=== PATIENT | female | born 1960 | race Hispanic/Latino ===

== ENCOUNTER 2020-07-14 06:57 | Inpatient (IN) | payer OTHER ==
[2020-07-14 07:49] LABS: #Eosinphils 0.2 thou/uL (0.0-0.7); #Monocytes 0.4 thou/uL (0.11-0.59); #Neutrophils 4.9 thou/uL (1.40-6.50); %Basophils 0.6 % (0.0-1.0); %Eosinophils 3.5 % (0.0-10.0); %Lymphocytes 15.4 % (21.0-51.0); %Monocytes 6.4 % (0.0-10.0); Hemoglobin 12.7 g/dL (12.0-16.0); Mean Corpuscular HGB CONC 34.1 g/dL (32.0-36.0); Mean Corpuscular Hemoglobin 30.3 pg (27.0-31.0); Mean Corpuscular Volume 88.8 fL (78.0-98.0); Platelet Count 421 thou/uL (130-400); RBC Distribution Width 11.7 % (11.5-14.5); White Blood Cell (WBC) Count 6.7 thou/uL (4.8-10.8)
--- NOTE | 2020-07-14 08:11 | RAD ---
EXAM: Single view of the chest HISTORY: Fatigue and shortness of breath. Covid exposure. COMPARISON: None FINDINGS: Single view of the chest shows a normal sized cardiomediastinal silhouette. There is scatte red multifocal peripheral infiltrates in the lungs concerning for Covid pneumonia. No acute osseous abnormality. IMPRESSION: Scattered multifocal infiltrates concerning for Covid pneumonia
[2020-07-14 08:13] LABS: ALT (SGPT) 20 U/L (8-55); AST (SGOT) 42 U/L (5-34); Alkaline Phosphatase 57 U/L (40-110); Anion Gap 14 mmol/L (10-20); BUN (Urea Nitrogen) 15 mg/dL (9.8-20.1); Bilirubin, Total 0.9 mg/dL (0.2-1.2); Calc. Creatinine Clearance 0 mL/min (70-130); Calcium 8.3 mg/dL (7.8-10.44); Carbon Dioxide 21 mmol/L (22-29); Chloride 102 mmol/L (98-107); Globulin 4.4 g/dL (2.4-3.5); Glucose 172 mg/dL (70-105); Potassium 3.6 mmol/L (3.5-5.1); Protein, Total 7.4 g/dL (6.0-8.3); Sodium 133 mmol/L (136-145)
[2020-07-14] MEDS ORDERED: Dexamethasone 10 MG/ML VIAL ONE (08:34)
[2020-07-14 09:11] LABS: SARS-CoV-2 NAA Rapid Test DETECTED (NotDetected)
[2020-07-14 09:44] LABS: Bacteria/HPF 3+ HPF (None Seen); Bilirubin Negative (Negative); Blood, Urine Negative (Negative); Clarity Turbid (Clear); Glucose, Urine (Dipstick) 50 mg/dL (Negative); Ketone, Urine 60 mg/dL (Negative); Leukocyte 250 Leu/uL (Negative); Nitrite 1+ (Negative); Protein, Urine (Dipstick) 70 mg/dL (Neg-Trace); RBC/HPF 0-3 HPF (0-3); Specific Gravity, Urine 1.026 (1.002-1.036); WBC/HPF 21-50 HPF (0-3)
[2020-07-14] MEDS ORDERED: Acetaminophen 650 MG Suppository PR PRN (10:45)
[2020-07-14] MEDS ORDERED: Acetaminophen 325 MG TAB PO PRN (10:45)
--- NOTE | 2020-07-14 10:53 | PDOC.HHP ---
Hospitalist HPI - History of Present Illness SOB History of Present Illness: Ms. Oneill is a 51-year-old female with past medical history of type 2 diabetes mellitus, hyperlipidemia who presents emergency room for shortness of breath. Patient reports that her symptoms began approximately 5 days ago with myalgias, subjective fevers and a dry cough. Patient reports that last night she developed worsening shortness of breath and decided to come to the emergency room this morning. She denies nausea vomiting diarrhea. Denies any chest pain or palpitations. In emergency room initial vital signs 114/44, 78, 18, 90.3, 85% on room air. Improved to 94% on 3 L nasal cannula. EKG showed normal sinus rhythm with no ST changes. Initial troponin less than 0.010, WBC 6.7. H/H 12.7/37.3. Chest x- ray showed multifocal bilateral infiltrates consistent with COVID-19 pneumonia. Patient received 6 mg of Decadron in emergency room and was admitted to hospitalist service. Hospitalist ROS - Review of Systems Constitutional: reports: fever, chills, weakness, malaise Eyes: denies: pain, vision change, conjunctivae inflammation, eyelid inflammation, redness, other ENT: reports: throat pain. denies: ear pain, ear discharge, nose pain, nose discharge, nose congestion, mouth pain, mouth swelling, throat swelling, other Respiratory: reports: cough, dry, shortness of breath, SOB with excertion. denies: hemoptysis, pleuritic pain, sputum, wheezing, other Cardiovascular: denies: chest pain, palpitations, orthopnea, paroxysmal noc. dyspnea, edema, light headedness, other Gastrointestinal: denies: nausea, vomiting, abdominal pain, diarrhea, constipation, melena, hematochezia, other Genitourinary: denies: dysuria, frequency, incontinence, hematuria, retention, other Musculoskeletal: denies: neck pain, shoulder pain, arm pain, back pain, hand pain, leg pain, foot pain, other Skin: denies: rash, lesions, madalyn, bruising, other Neurological: denies: weakness, numbness, incoordination, change in speech, confusion, seizures, other - Medication Medications: Home medications include Metformin Statinpatient unsure of name No known drug allergies Hospitalist History - Past Medical History Other Medical History: Past medical history includes Hyperlipidemia Type 2 diabetes mellitus - Past Surgical History Other Surgical History: No past surgical history - Family History Other Family History: No pertinent family history - Social History Smoking Status: Never smoker Alcohol: reports: Rare Drugs: reports: none Living Situation: With Family Activity level: independent ambulation - Exam General Appearance: NAD, awake alert General - other findings: Comfortable on 3 L nasal cannula no respiratory distress Eye: PERRL, anicteric sclera ENT: normocephalic atraumatic, no oropharyngeal lesions, moist mucosa Neck: supple, symmetric, no JVD, no thyromegaly, no lymphadenopathy, no carotid bruit Heart: RRR, no murmur, no gallops, no rubs, normal peripheral pulses Respiratory: CTAB, no wheezes, no rales, no ronchi, normal chest expansion, no tachypnea, normal percussion Gastrointestinal: soft, non-tender, non-distended, normal bowel sounds, no palpable masses, no hepatomegaly, no splenomegaly, no bruit Extremities: no cyanosis, no clubbing, no edema Skin: normal turgor, no lesions, no rashes Neurological: cranial nerve grossly intact, normal sensation to touch, no weakness, no focal deficits, no new deficit Musculoskeletal: normal tone, normal strength, no muscle wasting Psychiatric: normal affect, normal behavior, A&O x 3 Hospitalist Results - Labs Result Diagrams: 07/14/20 07:31 07/14/20 07:31 Lab results: WBC 6.7 thou/uL (4.8-10.8) 07/14/20 07:31 Hgb 12.7 g/dL (12.0-16.0) 07/14/20 07:31 Hct 37.3 % (36.0-47.0) 07/14/20 07:31 MCV 88.8 fL (78.0-98.0) 07/14/20 07:31 Plt Count 421 thou/uL (130-400) H 07/14/20 07:31 Neutrophils % 74.0 % (42.0-75.0) 07/14/20 07:31 Sodium 133 mmol/L (136-145) L 07/14/20 07:31 Potassium 3.6 mmol/L (3.5-5.1) 07/14/20 07:31 Chloride 102 mmol/L (98-107) 07/14/20 07:31 Carbon Dioxide 21 mmol/L (22-29) L 07/14/20 07:31 BUN 15 mg/dL (9.8-20.1) 07/14/20 07:31 Creatinine 0.83 mg/dL (0.6-1.1) 07/14/20 07:31 Glucose 172 mg/dL (70-105) H 07/14/20 07:31 Calcium 8.3 mg/dL (7.8-10.44) 07/14/20 07:31 Total Bilirubin 0.9 mg/dL (0.2-1.2) 07/14/20 07:31 AST 42 U/L (5-34) H 07/14/20 07:31 ALT 20 U/L (8-55) 07/14/20 07:31 Alkaline Phosphatase 57 U/L (40-110) 07/14/20 07:31 Troponin I Less than 0.010 ng/mL (< 0.028) 07/14/20 07:31 B-Natriuretic Peptide 30.3 pg/mL (0-100) 07/14/20 07:31 Serum Total Protein 7.4 g/dL (6.0-8.3) 07/14/20 07:31 Albumin 3.0 g/dL (3.5-5.0) L 07/14/20 07:31 Urine Ketones 60 mg/dL (Negative) A 07/14/20 08:50 Urine Blood Negative (Negative) 07/14/20 08:50 Urine Nitrite 1+ (Negative) A 07/14/20 08:50 Ur Leukocyte Esterase 250 Stew/uL (Negative) A 07/14/20 08:50 Urine RBC 0-3 HPF (0-3) 07/14/20 08:50 Urine WBC 21-50 HPF (0-3) A 07/14/20 08:50 Ur Squamous Epith Cells 4-6 HPF (0-3) A 07/14/20 08:50 Urine Bacteria 3+ HPF (None Seen) A 07/14/20 08:50 Hospitalist H&P A/P - Plan Plan: COVID-19 pneumonia 51-year-old female with history of hyper lipidemia, type 2 diabetes mellitus on Metformin presents with 5 days of fevers, myalgias and worsening shortness of breath. Patient now requiring supplemental oxygen on 3 L nasal cannula to maintain O2 saturation. WBC 6.7, chest x-ray shows multifocal infiltrates. Patient received Decadron in the emergency room. We will continue steroids, see if patient is candidate for remdesivir. Plan -Decadron, will see patient is candidate for remdesivir -Supplemental oxygen -Tylenol, Robitussin -Vitamin C, zinc -We will obtain baseline inflammatory markers Acute hypoxic respiratory failure Patient with acute hypoxic respiratory failure secondary to moderate to severe COVID-19 pneumonia. Patient with new oxygen requirement now on 3 L of oxygen nasal cannula to maintain O2 sat. We will continue supplemental oxygen and closely monitor respiratory status. Treatment as above. Plan -Supplemental oxygen -Treatment as above -Closely monitor respiratory status Type 2 diabetes mellitus On Metformin. Will continue and place on ISS/ACHS. Hyperlipidemia We will continue home statin once dosage confirmed DVT prophylaxisLovenox Full code Case discussed with attending physician, Dr. Schmitt.
[2020-07-14] MEDS ORDERED: Albuterol 200 PUFF (6.7GM INHALER) INH PRN (11:07)
[2020-07-14 11:13] VITALS: BMI 24.7
[2020-07-14] MEDS ORDERED: REMDESIVIR (EUA) 200 MG in Sodium Chloride 0.9% 250 ML 210 ML IV SCH (11:30)
[2020-07-14] MEDS ORDERED: Dextrose 50% Abboject 50 ML SYRINGE SLOW IVP PRN (16:42)
[2020-07-14] MEDS ORDERED: Dextrose 5% in Water 1,000 ML IV PRN (16:42)
[2020-07-14] MEDS: metFORMIN 500 MG TAB PO SCH (17:30)
[2020-07-14] MEDS: HumaLOG 300 UNITS/3 ML VIAL SC PRN ×2 (17:31→19:57)
[2020-07-15] MEDS: HumaLOG 300 UNITS/3 ML VIAL SC PRN ×4 (06:13→20:18)
[2020-07-15 07:51] LABS: Anion Gap 17 mmol/L (10-20); BUN (Urea Nitrogen) 26 mg/dL (9.8-20.1); Calc. Creatinine Clearance 76 mL/min (70-130); Calcium 8.9 mg/dL (7.8-10.44); Carbon Dioxide 19 mmol/L (22-29); Chloride 103 mmol/L (98-107); Glucose 299 mg/dL (70-105); Hemoglobin 12.8 g/dL (12.0-16.0); Mean Corpuscular HGB CONC 33.2 g/dL (32.0-36.0); Mean Corpuscular Hemoglobin 29.1 pg (27.0-31.0); Mean Corpuscular Volume 87.6 fL (78.0-98.0); Potassium 3.7 mmol/L (3.5-5.1); RBC Distribution Width 11.6 % (11.5-14.5); Sodium 135 mmol/L (136-145)
[2020-07-15] MEDS: Insulin Regular 300 UNITS/3 ML VIAL SC SCH (08:30)
[2020-07-15] MEDS: Dexamethasone 4 MG TAB PO SCH (08:31)
[2020-07-15] MEDS: Zinc Sulfate 220 MG CAP PO SCH (08:31)
[2020-07-15] MEDS: metFORMIN 500 MG TAB PO SCH ×2 (08:31→16:24)
[2020-07-15] MEDS: Ascorbic Acid 500 mg Chewable Tablet PO SCH (08:31)
[2020-07-15] MEDS: Enoxaparin Sodium 40 MG/0.4 ML SYRINGE SC SCH (08:32)
[2020-07-15 11:14] LABS: Band 2 % (5-11); Lymphocytes 8 % (21-51); MDiff Complete? YES; Mean Platelet Volume 7.4 fL (7.4-10.4); Monocytes 6 % (0-10); Neutrophil 82 % (42-75); Platelet Count 493 thou/uL (130-400); Platelet Morphology Comment Appears Increased; Reactive Lymphocytes 2 % (0-10); White Blood Cell (WBC) Count 8.4 thou/uL (4.8-10.8)
[2020-07-15] MEDS: REMDESIVIR (EUA) 100 MG in Sodium Chloride 0.9% 250 ML 230 ML IV SCH (13:35)
--- NOTE | 2020-07-15 14:54 | PDOC.HOSPP ---
- Subjective Encounter Date: 07/15/20 Encounter Time: 09:00 Subjective: No overnight events. Patient continues on 3L NC. No other complaints at this time. Chart and medications reviewed. - Objective Vital Signs & Weight: Vital Signs (12 hours) Temp Pulse Resp BP Pulse Ox 07/15/20 12:43 98.0 F 68 20 124/71 99 07/15/20 08:00 93 L 07/15/20 07:47 97.7 F 73 20 113/67 93 L 07/15/20 05:12 97.6 F 79 18 112/62 90 L Weight Weight 149 lb I&O: 07/14/20 07/15/20 07/16/20 06:59 06:59 06:59 Intake Total 320 Balance 320 Result Diagrams: 07/15/20 06:33 07/15/20 06:33 Additional Labs: Accuchecks 07/15/20 07/15/20 07/14/20 11:57 04:30 19:29 POC Glucose 245 H 272 H 344 H 07/14/20 16:39 POC Glucose 344 H Hospitalist ROS - Review of Systems Constitutional: denies: fever, chills, sweats, weakness, malaise, other Eyes: denies: vision change ENT: reports: nose congestion, throat pain Respiratory: reports: cough, shortness of breath. denies: dry, hemoptysis, SOB with excertion, pleuritic pain, sputum, wheezing, other Cardiovascular: denies: chest pain, palpitations, orthopnea, paroxysmal noc. dyspnea, edema, light headedness, other Gastrointestinal: denies: nausea, vomiting, abdominal pain, diarrhea, constipation, melena, hematochezia, other Genitourinary: denies: dysuria, frequency, incontinence, hematuria, retention, other Musculoskeletal: denies: neck pain, shoulder pain, arm pain, back pain, hand pain, leg pain, foot pain, other Skin: denies: rash, lesions, madalyn, bruising, other Neurological: denies: weakness, numbness, incoordination, change in speech, confusion, seizures, other - Medication Medications: Active Medications Generic Name Dose Route Start Last Admin Trade Name Freq PRN Reason Stop Dose Admin Ascorbic Acid 1,000 mg 07/15/20 09:00 07/15/20 08:31 Ascorbic Acid 500 Mg Chewable Tablet PO 1,000 mg DAILY ROSS Administration Dexamethasone 6 mg 07/15/20 08:00 07/15/20 08:31 Dexamethasone 4 Mg Tab PO 6 mg QAM-WM ROSS Administration Enoxaparin Sodium 40 mg 07/15/20 09:00 07/15/20 08:32 Enoxaparin Sodium 40 Mg/0.4 Ml Syringe SC 40 mg 0900 ROSS Administration Remdesivir 100 mg/ Sodium 250 mls @ 250 mls/hr 07/15/20 12:00 07/15/20 13:35 Chloride IV 07/18/20 12:59 250 mls 1200 ROSS Administration Insulin Human Lispro 0 units 07/14/20 16:42 07/15/20 13:35 Humalog 300 Units/3 Ml Vial SC 3 unit .MILD SLIDING SCALE PRN Administration Mild Correctional Scale Insulin Human Lispro 0 units 07/14/20 16:42 07/14/20 19:57 Humalog 300 Units/3 Ml Vial SC 5 unit .BEDTIME SLIDING SC PRN Administration Bedtime Correctional Scale Insulin Human Regular 15 units 07/15/20 07:30 07/15/20 08:30 Insulin Regular 300 Units/3 Ml Vial SC 15 unit 0730 ROSS Administration Metformin HCl 1,000 mg 07/14/20 17:00 07/15/20 08:31 Metformin 500 Mg Tab PO 1,000 mg BID-WM ROSS Administration Zinc Sulfate 220 mg 07/15/20 09:00 07/15/20 08:31 Zinc Sulfate 220 Mg Cap PO 220 mg DAILY ROSS Administration - Exam General Appearance: NAD, awake alert General - other findings: Comfortable on 3L NC Eye: negative: PERRL, anicteric sclera, scleral icterus ENT: normocephalic atraumatic, no oropharyngeal lesions, moist mucosa Neck: supple, symmetric, no JVD, no thyromegaly, no lymphadenopathy, no carotid bruit Heart: RRR, no murmur, no gallops, no rubs, normal peripheral pulses Respiratory - other findings: Rales throughout Gastrointestinal: soft, non-tender, non-distended, normal bowel sounds, no palpable masses, no hepatomegaly, no splenomegaly, no bruit Extremities: no cyanosis, no clubbing, no edema Skin: normal turgor, no lesions, no rashes Neurological: cranial nerve grossly intact, normal sensation to touch, no weakness, no focal deficits, no new deficit Musculoskeletal: normal tone, normal strength, no muscle wasting Psychiatric: normal affect, normal behavior, A&O x 3 Hosp A/P - Plan COVID-19 pneumonia 51-year-old female with history of hyper lipidemia, type 2 diabetes mellitus on Metformin presents with 5 days of fevers, myalgias and worsening shortness of breath. Patient now requiring supplemental oxygen on 3 L nasal cannula to maintain O2 saturation. WBC 6.7, chest x-ray shows multifocal infiltrates. Patient received Decadron in the emergency room. We will continue steroids, remdesivir. Continues on 3L NC. Plan -Decadron, remdesivir -Supplemental oxygen -Tylenol, Robitussin -Vitamin C, zinc -We will obtain baseline inflammatory markers Acute hypoxic respiratory failure Patient with acute hypoxic respiratory failure secondary to moderate to severe COVID-19 pneumonia. Patient with new oxygen requirement now on 3 L of oxygen nasal cannula to maintain O2 sat. We will continue supplemental oxygen and closely monitor respiratory status. Treatment as above. Plan -Supplemental oxygen -Treatment as above -Closely monitor respiratory status Type 2 diabetes mellitus On Metformin. Will continue and place on ISS/ACHS. Hyperlipidemia We will continue home statin once dosage confirmed Abnormal UA UA positive for WBCs, leukocytes, but lots of squamous cells. Likely contaminated sample. Patient denies urinary symptoms at this time. Will repeat UA if she develops symptoms. DVT prophylaxisLovenox Full code Case discussed with attending physician, Dr. Jaeger.
[2020-07-16] MEDS: HumaLOG 300 UNITS/3 ML VIAL SC PRN ×4 (05:15→19:58)
[2020-07-16 06:49] LABS: #Lymphocytes 1.8 thou/uL (1.20-3.40); #Monocytes 0.5 thou/uL (0.11-0.59); #Neutrophils 9.5 thou/uL (1.40-6.50); %Basophils 0.3 % (0.0-1.0); %Eosinophils 0.2 % (0.0-10.0); %Lymphocytes 14.8 % (21.0-51.0); %Monocytes 4.5 % (0.0-10.0); %Neutrophils 80.1 % (42.0-75.0); Hemoglobin 12.6 g/dL (12.0-16.0); Mean Corpuscular HGB CONC 33.6 g/dL (32.0-36.0); Mean Corpuscular Hemoglobin 29.5 pg (27.0-31.0); Mean Corpuscular Volume 87.7 fL (78.0-98.0); Mean Platelet Volume 7.2 fL (7.4-10.4); Platelet Count 558 thou/uL (130-400); RBC Distribution Width 11.8 % (11.5-14.5); Red Blood Cell (RBC) Count 4.26 mill/uL (4.20-5.40); White Blood Cell (WBC) Count 11.9 thou/uL (4.8-10.8)
[2020-07-16 07:07] LABS: Anion Gap 16 mmol/L (10-20); BUN (Urea Nitrogen) 30 mg/dL (9.8-20.1); Calc. Creatinine Clearance 72 mL/min (70-130); Calcium 8.7 mg/dL (7.8-10.44); Carbon Dioxide 18 mmol/L (22-29); Chloride 106 mmol/L (98-107); Glucose 267 mg/dL (70-105); Potassium 3.9 mmol/L (3.5-5.1); Sodium 136 mmol/L (136-145)
[2020-07-16] MEDS: Insulin Regular 300 UNITS/3 ML VIAL SC SCH (07:51)
[2020-07-16] MEDS: Dexamethasone 4 MG TAB PO SCH (07:51)
[2020-07-16] MEDS: metFORMIN 500 MG TAB PO SCH ×2 (07:52→17:27)
[2020-07-16] MEDS: Ascorbic Acid 500 mg Chewable Tablet PO SCH (07:52)
[2020-07-16] MEDS: Zinc Sulfate 220 MG CAP PO SCH (07:52)
[2020-07-16] MEDS: Enoxaparin Sodium 40 MG/0.4 ML SYRINGE SC SCH (07:52)
[2020-07-16] MEDS: REMDESIVIR (EUA) 100 MG in Sodium Chloride 0.9% 250 ML 230 ML IV SCH (14:02)
--- NOTE | 2020-07-16 15:55 | PDOC.HOSPP ---
- Subjective Encounter Date: 07/16/20 Encounter Time: 15:45 Subjective: f/u for COVID PNA/hypoxic resp failure on current Remdesivir/Vit C/Zinc/Lovenox/O2 @ 2L/min NC. - Objective Vital Signs & Weight: Vital Signs (12 hours) Temp Pulse Resp BP Pulse Ox 07/16/20 08:52 98.2 F 67 20 137/76 98 07/16/20 08:44 98 07/16/20 08:20 98.2 F 67 20 137/76 98 07/16/20 08:00 98 Weight Weight 149 lb I&O: 07/15/20 07/16/20 07/17/20 06:59 06:59 06:59 Intake Total 320 250 Balance 320 250 Result Diagrams: 07/16/20 06:26 07/16/20 06:26 Additional Labs: Accuchecks 07/16/20 07/16/20 07/15/20 11:25 05:13 19:19 POC Glucose 266 H 248 H 329 H 07/15/20 16:36 POC Glucose 321 H Radiology Reviewed by me: Yes (PCXR - scattered multifocal infiltrates) Hospitalist ROS - Medication Medications: Active Medications Generic Name Dose Route Start Last Admin Trade Name Freq PRN Reason Stop Dose Admin Ascorbic Acid 1,000 mg 07/15/20 09:00 07/16/20 07:52 Ascorbic Acid 500 Mg Chewable Tablet PO 1,000 mg DAILY ROSS Administration Dexamethasone 6 mg 07/15/20 08:00 07/16/20 07:51 Dexamethasone 4 Mg Tab PO 6 mg QAM-WM ROSS Administration Enoxaparin Sodium 40 mg 07/15/20 09:00 07/16/20 07:52 Enoxaparin Sodium 40 Mg/0.4 Ml Syringe SC 40 mg 0900 ROSS Administration Remdesivir 100 mg/ Sodium 250 mls @ 250 mls/hr 07/15/20 12:00 07/16/20 14:02 Chloride IV 07/18/20 12:59 250 mls 1200 ROSS Administration Insulin Human Lispro 0 units 07/14/20 16:42 07/16/20 12:46 Humalog 300 Units/3 Ml Vial SC 4 unit .MILD SLIDING SCALE PRN Administration Mild Correctional Scale Insulin Human Lispro 0 units 07/14/20 16:42 07/15/20 20:18 Humalog 300 Units/3 Ml Vial SC 4 unit .BEDTIME SLIDING SC PRN Administration Bedtime Correctional Scale Insulin Human Regular 15 units 07/15/20 07:30 07/16/20 07:51 Insulin Regular 300 Units/3 Ml Vial SC 15 unit 0730 ROSS Administration Metformin HCl 1,000 mg 07/14/20 17:00 07/16/20 07:52 Metformin 500 Mg Tab PO 1,000 mg BID-WM ROSS Administration Zinc Sulfate 220 mg 07/15/20 09:00 07/16/20 07:52 Zinc Sulfate 220 Mg Cap PO 220 mg DAILY ROSS Administration - Exam General Appearance: NAD, awake alert Eye: PERRL, anicteric sclera ENT: normocephalic atraumatic, no oropharyngeal lesions Neck: supple, symmetric, no JVD, no thyromegaly, no lymphadenopathy Heart: RRR, no gallops, no rubs, normal peripheral pulses Heart - other findings: S1, S2 Respiratory: no tachypnea Respiratory - other findings: diminished in bases, occ rhonchi Gastrointestinal: soft, non-tender, non-distended, normal bowel sounds, no palpable masses Extremities: no cyanosis, no clubbing, no edema Skin: normal turgor, no lesions Neurological: cranial nerve grossly intact, no new deficit Musculoskeletal: normal tone, normal strength, no muscle wasting Psychiatric: normal affect, A&O x 3 Hosp A/P (1) Pneumonia due to COVID-19 virus Code(s): U07.1 - COVID-19; J12.82 - PNEUMONIA DUE TO CORONAVIRUS DISEASE 2019 Status: Acute Plan: Continue Remdesivir/Vit C/Zinc/D3/Lovenox/O2 supplementation (2) Acute respiratory failure with hypoxia Code(s): J96.01 - ACUTE RESPIRATORY FAILURE WITH HYPOXIA Status: Acute Plan: O2 supplementation, assess for home O2 (3) UTI (urinary tract infection) Status: Acute Plan: Suspected with GNR, start Rocephin 2gm IV Daily, await final Ucx results (4) Diabetes mellitus, type II, insulin dependent Code(s): E11.9 - TYPE 2 DIABETES MELLITUS WITHOUT COMPLICATIONS; Z79.4 - CUSTODIAL (CURRENT) USE OF INSULIN Status: Chronic Plan: Labile due to Dexamethasone, start Lantus 10u sc BID, ISS, ADA - Plan social worker, respiratory therapy, incentive spirometry, out of bed/ambulate, DVT proph w/SCDs Stable currently Continue Remdesivir IV per protocol Continue Vit C/Zinc/D3 Continue Lovenox Assess for home O2 Start Rocephin 2gm IV Daily AM lab: Ferritin, CRP q2days
[2020-07-16] MEDS: cefTRIAXone\\ROCEPHIN 2 GM in Sodium Chloride 0.9% 100 ML IVPB SCH (17:27)
[2020-07-16] MEDS: Insulin Glargine 10 UNITS in Pre-Filled Syringe 1 EACH SC SCH (19:58)
[2020-07-17] MEDS: HumaLOG 300 UNITS/3 ML VIAL SC PRN ×4 (05:36→20:35)
[2020-07-17 07:28] LABS: Anion Gap 14 mmol/L (10-20); BUN (Urea Nitrogen) 24 mg/dL (9.8-20.1); Calc. Creatinine Clearance 72 mL/min (70-130); Calcium 8.8 mg/dL (7.8-10.44); Carbon Dioxide 21 mmol/L (22-29); Chloride 106 mmol/L (98-107); Glucose 209 mg/dL (70-105); Sodium 137 mmol/L (136-145)
[2020-07-17 07:37] LABS: #Eosinphils 0.1 thou/uL (0.0-0.7); #Lymphocytes 1.9 thou/uL (1.20-3.40); #Monocytes 0.6 thou/uL (0.11-0.59); #Neutrophils 6.8 thou/uL (1.40-6.50); %Basophils 0.1 % (0.0-1.0); %Eosinophils 0.9 % (0.0-10.0); %Monocytes 6.3 % (0.0-10.0); %Neutrophils 72.7 % (42.0-75.0); Hemoglobin 12.7 g/dL (12.0-16.0); Mean Corpuscular HGB CONC 34.2 g/dL (32.0-36.0); Mean Corpuscular Hemoglobin 30.5 pg (27.0-31.0); Mean Corpuscular Volume 89.3 fL (78.0-98.0); Mean Platelet Volume 8.7 fL (7.4-10.4); Platelet Count 376 thou/uL (130-400); Red Blood Cell (RBC) Count 4.16 mill/uL (4.20-5.40); White Blood Cell (WBC) Count 9.4 thou/uL (4.8-10.8)
[2020-07-17] MEDS: Dexamethasone 4 MG TAB PO SCH (08:12)
[2020-07-17] MEDS: Cholecalciferol 1,000 UNITS (25 MCG) TAB PO SCH (08:12)
[2020-07-17] MEDS: Ascorbic Acid 500 mg Chewable Tablet PO SCH (08:12)
[2020-07-17] MEDS: metFORMIN 500 MG TAB PO SCH ×2 (08:12→16:10)
[2020-07-17] MEDS: Zinc Sulfate 220 MG CAP PO SCH (08:13)
[2020-07-17] MEDS: Enoxaparin Sodium 40 MG/0.4 ML SYRINGE SC SCH (08:13)
--- NOTE | 2020-07-17 11:09 | PDOC.HOSPP ---
- Subjective Encounter Date: 07/17/20 Encounter Time: 11:10 Subjective: f/u for COVID PNA/hypoxic resp failure receiving O2 @ 2L/min NC/Rocephin/Vit C/Zinc/Lovenox/Remdesivir/Dexamethasone. Overall feels better. - Objective Vital Signs & Weight: Vital Signs (12 hours) Temp Pulse Resp BP Pulse Ox 07/17/20 07:52 96 07/17/20 07:36 97.9 F 69 20 125/68 96 07/17/20 03:42 68 18 97 07/16/20 23:35 74 20 96 Weight Weight 149 lb I&O: 07/16/20 07/17/20 07/18/20 06:59 06:59 06:59 Intake Total 250 250 Balance 250 250 Result Diagrams: 07/17/20 06:34 07/17/20 06:34 Additional Labs: Accuchecks 07/17/20 07/16/20 07/16/20 05:35 19:22 16:38 POC Glucose 209 H 370 H 304 H 07/16/20 11:25 POC Glucose 266 H Microbiology 07/14/20 08:50 Urine voided Urine Culture - Final Escherichia coli Laboratory Tests 07/14/20 07/14/20 07/15/20 07:31 07:43 18:03 Ferritin C-Reactive Protein 11.59 H B-Natriuretic Peptide 30.3 Influenza A RNA INAAT Not Detected Influenza B RNA INAAT Not Detected SARS-CoV-2 Rap RNA(RT-PCR) DETECTED A* 07/15/20 07/17/20 07/17/20 18:03 06:34 06:34 Ferritin 590.84 H 392.55 H C-Reactive Protein 4.28 H B-Natriuretic Peptide Influenza A RNA INAAT Influenza B RNA INAAT SARS-CoV-2 Rap RNA(RT-PCR) Hospitalist ROS - Medication Medications: Active Medications Generic Name Dose Route Start Last Admin Trade Name Freq PRN Reason Stop Dose Admin Ascorbic Acid 1,000 mg 07/15/20 09:00 07/17/20 08:12 Ascorbic Acid 500 Mg Chewable Tablet PO 1,000 mg DAILY ROSS Administration Cholecalciferol 1,000 units 07/17/20 09:00 07/17/20 08:12 Cholecalciferol 1,000 Units (25 Mcg) Tab PO 1,000 units DAILY ROSS Administration Dexamethasone 6 mg 07/15/20 08:00 07/17/20 08:12 Dexamethasone 4 Mg Tab PO 6 mg QAM-WM ROSS Administration Enoxaparin Sodium 40 mg 07/15/20 09:00 07/17/20 08:13 Enoxaparin Sodium 40 Mg/0.4 Ml Syringe SC 40 mg 0900 ROSS Administration Remdesivir 100 mg/ Sodium 250 mls @ 250 mls/hr 07/15/20 12:00 07/16/20 14:02 Chloride IV 07/18/20 12:59 250 mls 1200 ROSS Administration Ceftriaxone Sodium 2 gm/ 100 mls @ 200 mls/hr 07/16/20 17:00 07/16/20 17:27 Sodium Chloride IVPB 100 mls 1700 ROSS Administration Insulin Glargine 10 units/ 0.1 mls @ 0 mls/hr 07/16/20 21:00 07/16/20 19:58 Miscellaneous Medication SC 0.1 mls HS ROSS Administration Insulin Human Lispro 0 units 07/14/20 16:42 07/17/20 05:36 Humalog 300 Units/3 Ml Vial SC 3 unit .MILD SLIDING SCALE PRN Administration Mild Correctional Scale Insulin Human Lispro 0 units 07/14/20 16:42 07/16/20 19:58 Humalog 300 Units/3 Ml Vial SC 5 unit .BEDTIME SLIDING SC PRN Administration Bedtime Correctional Scale Metformin HCl 1,000 mg 07/14/20 17:00 07/17/20 08:12 Metformin 500 Mg Tab PO 1,000 mg BID-WM ROSS Administration Zinc Sulfate 220 mg 07/15/20 09:00 07/17/20 08:13 Zinc Sulfate 220 Mg Cap PO 220 mg DAILY ROSS Administration - Exam General Appearance: NAD, awake alert Eye: PERRL, anicteric sclera ENT: normocephalic atraumatic, no oropharyngeal lesions Neck: supple, symmetric, no JVD, no thyromegaly, no lymphadenopathy Heart: RRR, no murmur, no gallops, no rubs, normal peripheral pulses Heart - other findings: S1, S2 Respiratory: no wheezes, no tachypnea Respiratory - other findings: few scattered rhonchi Gastrointestinal: soft, non-tender, non-distended, normal bowel sounds, no palpable masses Extremities: no cyanosis, no clubbing, no edema Skin: normal turgor, no lesions Neurological: cranial nerve grossly intact, no new deficit Musculoskeletal: normal tone, normal strength, no muscle wasting Psychiatric: normal affect, A&O x 3 Hosp A/P (1) Pneumonia due to COVID-19 virus Code(s): U07.1 - COVID-19; J12.82 - PNEUMONIA DUE TO CORONAVIRUS DISEASE 2019 Status: Acute Plan: continue Remdesivir/Lovenox/Dexamethasone/Vit C/D3/Zinc/O2 (2) Acute respiratory failure with hypoxia Code(s): J96.01 - ACUTE RESPIRATORY FAILURE WITH HYPOXIA Status: Acute Plan: continue O2 supplementation, consider home O2 needs (3) UTI (urinary tract infection) Status: Acute Plan: E. coli spp isolated, continue Rocephin (4) Diabetes mellitus, type II, insulin dependent Code(s): E11.9 - TYPE 2 DIABETES MELLITUS WITHOUT COMPLICATIONS; Z79.4 - ENGINE SERVICE REPAIRER (CURRENT) USE OF INSULIN Status: Chronic - Plan plan discussed w/ family, continue antibiotics, social welfare research worker, respiratory therapy, out of bed/ambulate, DVT proph w/SCDs Stable currently Continue Remdesivir IV per protocol Continue Vit C/Zinc/D3 Continue Lovenox Assess for home O2 Continue Rocephin 2gm IV Daily AM lab: Ferritin, CRP q2days Likely home in 48h
[2020-07-17] MEDS: Insulin Glargine 10 UNITS in Pre-Filled Syringe 1 EACH SC SCH ×2 (11:13→20:36)
[2020-07-17] MEDS: REMDESIVIR (EUA) 100 MG in Sodium Chloride 0.9% 250 ML 230 ML IV SCH (14:10)
[2020-07-17] MEDS: cefTRIAXone\\ROCEPHIN 2 GM in Sodium Chloride 0.9% 100 ML IVPB SCH (16:11)
[2020-07-18 06:20] LABS: #Basophils 0.1 thou/uL (0.0-0.2); #Eosinphils 0.3 thou/uL (0.0-0.7); #Lymphocytes 2.8 thou/uL (1.20-3.40); #Monocytes 0.7 thou/uL (0.11-0.59); #Neutrophils 7.4 thou/uL (1.40-6.50); %Basophils 0.5 % (0.0-1.0); %Eosinophils 2.4 % (0.0-10.0); %Lymphocytes 24.5 % (21.0-51.0); %Monocytes 6.6 % (0.0-10.0); Hemoglobin 13.1 g/dL (12.0-16.0); Mean Corpuscular Hemoglobin 30.1 pg (27.0-31.0); Mean Corpuscular Volume 88.6 fL (78.0-98.0); Mean Platelet Volume 6.9 fL (7.4-10.4); Platelet Count 543 thou/uL (130-400); RBC Distribution Width 12.1 % (11.5-14.5); Red Blood Cell (RBC) Count 4.34 mill/uL (4.20-5.40); White Blood Cell (WBC) Count 11.3 thou/uL (4.8-10.8)
[2020-07-18 06:39] LABS: Anion Gap 14 mmol/L (10-20); BUN (Urea Nitrogen) 20 mg/dL (9.8-20.1); Calc. Creatinine Clearance 85 mL/min (70-130); Calcium 8.7 mg/dL (7.8-10.44); Carbon Dioxide 20 mmol/L (22-29); Chloride 106 mmol/L (98-107); Glucose 149 mg/dL (70-105); Potassium 3.9 mmol/L (3.5-5.1); Sodium 136 mmol/L (136-145)
[2020-07-18] MEDS: Dexamethasone 4 MG TAB PO SCH (07:55)
[2020-07-18] MEDS: Ascorbic Acid 500 mg Chewable Tablet PO SCH (07:55)
[2020-07-18] MEDS: metFORMIN 500 MG TAB PO SCH ×2 (07:55→16:44)
[2020-07-18] MEDS: Cholecalciferol 1,000 UNITS (25 MCG) TAB PO SCH (07:56)
[2020-07-18] MEDS: Zinc Sulfate 220 MG CAP PO SCH (07:56)
[2020-07-18] MEDS: Enoxaparin Sodium 40 MG/0.4 ML SYRINGE SC SCH (07:56)
[2020-07-18] MEDS: Insulin Glargine 10 UNITS in Pre-Filled Syringe 1 EACH SC SCH ×2 (09:05→20:34)
--- NOTE | 2020-07-18 11:20 | PDOC.HOSPP ---
- Subjective Encounter Date: 07/18/20 Encounter Time: 11:10 Subjective: f/u for COVID PNA/hypoxic resp failure on O2 @ 0.5L/min NC. Feels better overall. Some SOB when ambulating. - Objective Vital Signs & Weight: Vital Signs (12 hours) Temp Pulse Resp BP Pulse Ox 07/18/20 08:00 95 07/18/20 07:55 76 20 95 07/18/20 07:40 98.3 F 68 22 H 110/70 95 07/18/20 05:42 72 20 93 L 07/18/20 03:43 61 18 97 07/17/20 23:37 61 18 98 Weight Weight 149 lb I&O: 07/17/20 07/18/20 07/19/20 06:59 06:59 06:59 Intake Total 250 480 Balance 250 480 Result Diagrams: 07/18/20 05:47 07/18/20 05:47 Additional Labs: Accuchecks 07/18/20 07/17/20 07/17/20 05:21 19:41 16:19 POC Glucose 143 H 290 H 361 H Microbiology 07/14/20 08:50 Urine voided Urine Culture - Final Escherichia coli Laboratory Tests 07/14/20 07/14/20 07/15/20 07:31 07:43 18:03 Ferritin C-Reactive Protein 11.59 H B-Natriuretic Peptide 30.3 Influenza A RNA INAAT Not Detected Influenza B RNA INAAT Not Detected SARS-CoV-2 Rap RNA(RT-PCR) DETECTED A* 07/15/20 07/17/20 07/17/20 18:03 06:34 06:34 Ferritin 590.84 H 392.55 H C-Reactive Protein 4.28 H B-Natriuretic Peptide Influenza A RNA INAAT Influenza B RNA INAAT SARS-CoV-2 Rap RNA(RT-PCR) Hospitalist ROS - Medication Medications: Active Medications Generic Name Dose Route Start Last Admin Trade Name Freq PRN Reason Stop Dose Admin Ascorbic Acid 1,000 mg 07/15/20 09:00 07/18/20 07:55 Ascorbic Acid 500 Mg Chewable Tablet PO 1,000 mg DAILY ROSS Administration Cholecalciferol 1,000 units 07/17/20 09:00 07/18/20 07:56 Cholecalciferol 1,000 Units (25 Mcg) Tab PO 1,000 units DAILY ROSS Administration Dexamethasone 6 mg 07/15/20 08:00 07/18/20 07:55 Dexamethasone 4 Mg Tab PO 6 mg QAM-WM ROSS Administration Enoxaparin Sodium 40 mg 07/15/20 09:00 07/18/20 07:56 Enoxaparin Sodium 40 Mg/0.4 Ml Syringe SC 40 mg 0900 ROSS Administration Remdesivir 100 mg/ Sodium 250 mls @ 250 mls/hr 07/15/20 12:00 07/17/20 14:10 Chloride IV 07/18/20 12:59 250 mls 1200 ROSS Administration Ceftriaxone Sodium 2 gm/ 100 mls @ 200 mls/hr 07/16/20 17:00 07/17/20 16:11 Sodium Chloride IVPB 100 mls 1700 ROSS Administration Insulin Glargine 10 units/ 0.1 mls @ 0 mls/hr 07/17/20 09:00 07/18/20 09:05 Miscellaneous Medication SC 0.1 mls QAM ROSS Administration Insulin Glargine 10 units/ 0.1 mls @ 0 mls/hr 07/16/20 21:00 07/17/20 20:36 Miscellaneous Medication SC 0.1 mls HS ROSS Administration Insulin Human Lispro 0 units 07/14/20 16:42 07/17/20 17:01 Humalog 300 Units/3 Ml Vial SC 6 unit .MILD SLIDING SCALE PRN Administration Mild Correctional Scale Insulin Human Lispro 0 units 07/14/20 16:42 07/17/20 20:35 Humalog 300 Units/3 Ml Vial SC 3 unit .BEDTIME SLIDING SC PRN Administration Bedtime Correctional Scale Metformin HCl 1,000 mg 07/14/20 17:00 07/18/20 07:55 Metformin 500 Mg Tab PO 1,000 mg BID-WM ROSS Administration Sodium Chloride 10 ml 07/14/20 10:45 07/18/20 07:56 Flush - Normal Saline 10 Ml Syringe IVF 10 ml PRN PRN Administration Saline Flush Zinc Sulfate 220 mg 07/15/20 09:00 07/18/20 07:56 Zinc Sulfate 220 Mg Cap PO 220 mg DAILY ROSS Administration Hospitalist Exam Vitals: Vital Signs (12 hours) Temp Pulse Resp BP Pulse Ox 07/18/20 08:00 95 07/18/20 07:55 76 20 95 07/18/20 07:40 98.3 F 68 22 H 110/70 95 07/18/20 05:42 72 20 93 L 07/18/20 03:43 61 18 97 07/17/20 23:37 61 18 98 Weight Weight 149 lb General Appearance: NAD, awake alert Eye: PERRL, anicteric sclera ENT: normocephalic atraumatic, no oropharyngeal lesions Neck: supple, symmetric, no JVD, no thyromegaly, no lymphadenopathy Heart: RRR, no gallops, no rubs, normal peripheral pulses Heart - other findings: S1, S2 Respiratory: no wheezes, no tachypnea Respiratory - other findings: few scattered coarse sounds Gastrointestinal: soft, non-tender, non-distended, normal bowel sounds, no palpable masses Extremities: no cyanosis, no clubbing, no edema Skin: normal turgor, no lesions Neurological: cranial nerve grossly intact, no new deficit Musculoskeletal: normal tone, normal strength, no muscle wasting Psychiatric: normal affect, A&O x 3 Hosp A/P (1) Pneumonia due to COVID-19 virus Code(s): U07.1 - COVID-19; J12.82 - PNEUMONIA DUE TO CORONAVIRUS DISEASE 2019 Status: Acute Plan: Continue Remdesivir/Dexamethasone/Vit C/D3/Zinc/Lovenox, overall improving (2) Acute respiratory failure with hypoxia Code(s): J96.01 - ACUTE RESPIRATORY FAILURE WITH HYPOXIA Status: Acute Plan: Wean O2 supplementation as clinically indicated, may need low-volume O2 at home (3) UTI (urinary tract infection) Status: Acute Plan: Continue Rocephin another 24h (4) Diabetes mellitus, type II, insulin dependent Code(s): E11.9 - TYPE 2 DIABETES MELLITUS WITHOUT COMPLICATIONS; Z79.4 - LONG T ERM (CURRENT) USE OF INSULIN Status: Chronic - Plan plan discussed w/ family, continue antibiotics, social sciences professor, respiratory therapy, out of bed/ambulate, DVT proph w/SCDs Stable currently Continue Remdesivir IV per protocol, will finish on 07/19/20 Continue Vit C/Zinc/D3 Continue Lovenox Assess for home O2 Continue Rocephin 2gm IV Daily AM lab: Ferritin, CRP q2days Likely home in 24h
[2020-07-18] MEDS: HumaLOG 300 UNITS/3 ML VIAL SC PRN ×3 (12:39→20:34)
[2020-07-18] MEDS: REMDESIVIR (EUA) 100 MG in Sodium Chloride 0.9% 250 ML 230 ML IV SCH (13:30)
[2020-07-18] MEDS: cefTRIAXone\\ROCEPHIN 2 GM in Sodium Chloride 0.9% 100 ML IVPB SCH (16:44)
[2020-07-19] MEDS: HumaLOG 300 UNITS/3 ML VIAL SC PRN (05:49)
[2020-07-19 06:21] LABS: #Eosinphils 0.3 thou/uL (0.0-0.7); #Lymphocytes 1.9 thou/uL (1.20-3.40); #Monocytes 0.6 thou/uL (0.11-0.59); #Neutrophils 6.7 thou/uL (1.40-6.50); %Basophils 0.4 % (0.0-1.0); %Eosinophils 2.9 % (0.0-10.0); %Lymphocytes 19.9 % (21.0-51.0); %Monocytes 6.7 % (0.0-10.0); %Neutrophils 70.1 % (42.0-75.0); Hemoglobin 12.9 g/dL (12.0-16.0); Mean Corpuscular Hemoglobin 30.1 pg (27.0-31.0); Mean Corpuscular Volume 88.7 fL (78.0-98.0); Mean Platelet Volume 7.1 fL (7.4-10.4); Platelet Count 519 thou/uL (130-400); RBC Distribution Width 12.2 % (11.5-14.5); Red Blood Cell (RBC) Count 4.27 mill/uL (4.20-5.40); White Blood Cell (WBC) Count 9.5 thou/uL (4.8-10.8)
[2020-07-19 06:41] LABS: Anion Gap 16 mmol/L (10-20); BUN (Urea Nitrogen) 22 mg/dL (9.8-20.1); Calc. Creatinine Clearance 90 mL/min (70-130); Calcium 8.6 mg/dL (7.8-10.44); Carbon Dioxide 18 mmol/L (22-29); Chloride 104 mmol/L (98-107); Glucose 198 mg/dL (70-105); Potassium 3.9 mmol/L (3.5-5.1); Sodium 134 mmol/L (136-145)
[2020-07-19] MEDS: Enoxaparin Sodium 40 MG/0.4 ML SYRINGE SC SCH (08:12)
[2020-07-19] MEDS: Ascorbic Acid 500 mg Chewable Tablet PO SCH (08:12)
[2020-07-19 08:13] VITALS: BP 104/63; TEMP 97.7
[2020-07-19] MEDS: Dexamethasone 4 MG TAB PO SCH (08:13)
[2020-07-19] MEDS: Cholecalciferol 1,000 UNITS (25 MCG) TAB PO SCH (08:13)
[2020-07-19] MEDS: Zinc Sulfate 220 MG CAP PO SCH (08:13)
[2020-07-19] MEDS: metFORMIN 500 MG TAB PO SCH (08:13)
[2020-07-19] MEDS: Insulin Glargine 10 UNITS in Pre-Filled Syringe 1 EACH SC SCH (09:46)
--- NOTE | 2020-07-20 00:50 | DIS ---
DATE OF ADMISSION: 07/14/2020 DATE OF DISCHARGE: 07/19/2020 DISCHARGE DIAGNOSES: 1. Pneumonia due to COVID-19 virus. 2. Acute hypoxic respiratory failure, resolving. 3. Urinary tract infection with Escherichia coli. 4. Diabetes mellitus type 2, insulin requiring. CONSULTATIONS: None. PERTINENT LABORATORY AND X-RAY FINDINGS: Ferritin ranged between 350 to 591. CRP ranged between 3.3 to 11.6. BNP 30. CBC showed a white blood cell count ranging between 6.7 to 11.9. COVID-19 PCR positive 07/14/2020. Influenza A and B RNA not detected 07/14/2020. Urine culture dated 07/14/2020 showed greater than 100,000 colonies of E. coli species sensitive to quinolones. Portable chest x-ray dated 07/14/2020 showed multifocal infiltrates consistent with COVID pneumonia. HOSPITAL COURSE: The patient was admitted to the medical floor after presenting with increased shortness of breath with chest imaging showing multifocal infiltrates in the context of a positive COVID-19. The patient was treated for COVID-19 pneumonia, receiving oxygen supplementation in addition to dexamethasone, vitamin C and zinc. The patient was appropriate candidate for remdesivir and received 5 day protocol, tolerating without complication. The patient was weaned off oxygen supplementation from initial 3 L/minute by nasal cannula to room air, maintaining O2 saturations appropriately. Overall, the patient did remain clinically stable during the hospital course. The patient was additionally treated for urinary tract infection with Escherichia coli species, receiving IV Rocephin, transitioning to oral Levaquin to complete an outpatient antibiotic course. I have examined the patient at the time of discharge and discussed followup instructions. The patient verbalized understanding and agreement ready for discharge on 07/19/2020. DISCHARGE MEDICATIONS: 1. Metformin 1000 mg p.o. b.i.d. 2. Glargine insulin 36 units subcutaneously daily. 3. Dexamethasone 6 mg p.o. daily x7 days. 4. DuoNeb 3 mL nebulized q.i.d. p.r.n. 5. Levaquin 500 mg p.o. daily x5 days. 6. Proventil HFA 2 puffs inhaled q.4 hours p.r.n. 7. Vitamin C 1000 mg p.o. daily. 8. Vitamin D3 1000 units p.o. daily. 9. Zinc sulfate 220 mg p.o. daily. FOLLOWUP: The patient may follow up with her primary care provider, Dr. Riley Gorman within 7 days of discharge. CONDITION ON DISCHARGE: Stable. ACTIVITY: Ad-toño. DIET: Heart healthy and ADA. CODE STATUS: Full. DISPOSITION: To home on 07/19/2020. TIME SPENT: Total time preparing and coordinating discharge, 35 minutes. Job ID: [id number]
== END 2020-07-19 11:56 | disposition home or self-care (01) | DRG 177 ==
LOC: ERS 06:57 → T4-A 08:46
PROVIDERS: ADMIT Internal Medicine; ATTEND Family Medicine
PROC: XW033E5 Introduction of Remdesivir Anti-infective into Peripheral Vein, Percutaneous Approach, New Technology Group 5 (ICD-10-PCS; principal; 2020-07-14)
DX: U07.1 COVID-19 (principal); J12.82 Pneumonia due to coronavirus disease 2019; J96.01 Acute respiratory failure with hypoxia; N39.0 Urinary tract infection, site not specified; E11.9 Type 2 diabetes mellitus without complications; E78.5 Hyperlipidemia, unspecified; Z79.84 Long term (current) use of oral hypoglycemic drugs
CPT/HCPCS: 0240U; 36415; 36416; 71045; 80048; 80053; 81003; 81015; 82728; 83880; 84484; 85025; 86140; 87077; 87086; 87186; 93005; 96374; J0696; J1100; J1650; J1815; J3490; J7050; J8540

== ENCOUNTER 2020-08-10 02:18 | Inpatient (IN) | payer OTHER ==
[2020-08-10] MEDS ORDERED: Albuterol 200 PUFF (6.7GM INHALER) ONE (02:41)
[2020-08-10 02:57] LABS: #Eosinphils 0.4 thou/uL (0.0-0.7); #Lymphocytes 2.1 thou/uL (1.20-3.40); #Monocytes 0.9 thou/uL (0.11-0.59); #Neutrophils 6.2 thou/uL (1.40-6.50); %Basophils 0.3 % (0.0-1.0); %Eosinophils 4.1 % (0.0-10.0); %Lymphocytes 21.5 % (21.0-51.0); %Neutrophils 65.2 % (42.0-75.0); Hemoglobin 12.2 g/dL (12.0-16.0); Mean Corpuscular HGB CONC 33.5 g/dL (32.0-36.0); Mean Corpuscular Hemoglobin 29.7 pg (27.0-31.0); Mean Corpuscular Volume 88.6 fL (78.0-98.0); Mean Platelet Volume 6.7 fL (7.4-10.4); Platelet Count 472 thou/uL (130-400); RBC Distribution Width 13.3 % (11.5-14.5); Red Blood Cell (RBC) Count 4.12 mill/uL (4.20-5.40); White Blood Cell (WBC) Count 9.5 thou/uL (4.8-10.8)
[2020-08-10 03:18] LABS: ALT (SGPT) 9 U/L (8-55); AST (SGOT) 18 U/L (5-34); Albumin 3.2 g/dL (3.5-5.0); Alkaline Phosphatase 70 U/L (40-110); Anion Gap 14 mmol/L (10-20); BUN (Urea Nitrogen) 14 mg/dL (9.8-20.1); Bilirubin, Total 0.7 mg/dL (0.2-1.2); CK (CPK) 20 U/L (29-168); Calc. Creatinine Clearance 0 mL/min (70-130); Calcium 8.9 mg/dL (7.8-10.44); Carbon Dioxide 22 mmol/L (22-29); Chloride 104 mmol/L (98-107); Globulin 4.4 g/dL (2.4-3.5); Glucose 139 mg/dL (70-105); Potassium 3.7 mmol/L (3.5-5.1); Protein, Total 7.6 g/dL (6.0-8.3); Sodium 136 mmol/L (136-145)
[2020-08-10 03:34] LABS: Actual Bicarbonate (HCO3a) 19.8 mEq/L (22-28); Analyzer IN Cardio ER; Base Excess (BEa) -3.6 mEq/L (-2.0 to +3.0); CO2 Tension 31.1 mmHg (35.0-45.0); Calcium, Ionized (arterial) 1.15 mmol/L (1.12-1.30); Carboxyhemoglobin (COHb) 0.5 gm% (0.0-3.0); Hemoglobin (Hb) 12.9 g/dL (12.0-16.0); O2 Tension (PaO2), arterial 62.6 mmHg (80.0-100.0); Potassium - ABG Lab 3.62 mmol/L (3.70-5.30); pH, Arterial 7.42 (7.35-7.45)
[2020-08-10 03:37] LABS: ALV-art Gradient 155.205 mmHg (0-20); Puncture Site LRA
[2020-08-10] MEDS ORDERED: Guaifenesin DM 100-10/5 ML UDCUP PO PRN (06:45)
[2020-08-10] MEDS ORDERED: guaiFENesin 200 MG TAB PO PRN (06:46)
[2020-08-10] MEDS ORDERED: Dextrose 5% in Water 1,000 ML IV PRN (06:48)
[2020-08-10] MEDS: Zinc Sulfate 220 MG CAP PO SCH (09:00)
[2020-08-10] MEDS ORDERED: Dexamethasone 10 MG/ML VIAL ONE (09:35)
[2020-08-10] MEDS ORDERED: Enoxaparin Sodium 40 MG/0.4 ML SYRINGE ONE (09:35)
[2020-08-10] MEDS: Enoxaparin Sodium 40 MG/0.4 ML SYRINGE SC SCH (09:36)
[2020-08-10] MEDS: Dexamethasone 4 mg/ml Vial SLOW IVP SCH (09:37)
[2020-08-10] MEDS: Ascorbic Acid 500 mg Chewable Tablet PO SCH (09:37)
[2020-08-10] MEDS: Cholecalciferol (Vitamin D3) 400 UNITS TAB PO SCH (09:37)
[2020-08-10] MEDS ORDERED: Rocuronium Bromide 10 MG/ML (10ML VIAL) ONE (10:16)
[2020-08-10] MEDS ORDERED: Succinylcholine 200 MG/10 ml SYRINGE FS ONE (10:16)
[2020-08-10] MEDS ORDERED: Iopamidol-370 76% 500 ML 1 ML ONE (10:59)
[2020-08-10] MEDS: HumaLOG 300 UNITS/3 ML VIAL SC PRN (21:56)
[2020-08-10] MEDS ORDERED: Albuterol 200 PUFF (6.7GM INHALER) INH PRN (22:19)
[2020-08-10] MEDS: Albuterol 200 PUFF (6.7GM INHALER) INH SCH (23:24)
[2020-08-11] MEDS: Albuterol 200 PUFF (6.7GM INHALER) INH SCH ×6 (03:14→22:37)
[2020-08-11] MEDS: HumaLOG 300 UNITS/3 ML VIAL SC PRN ×4 (05:51→19:37)
[2020-08-11 06:18] LABS: #Lymphocytes 1.7 thou/uL (1.20-3.40); #Monocytes 0.8 thou/uL (0.11-0.59); #Neutrophils 8.5 thou/uL (1.40-6.50); %Basophils 0.3 % (0.0-1.0); %Eosinophils 0.4 % (0.0-10.0); %Lymphocytes 15.3 % (21.0-51.0); %Monocytes 7.5 % (0.0-10.0); %Neutrophils 76.5 % (42.0-75.0); Hemoglobin 12.1 g/dL (12.0-16.0); Mean Corpuscular HGB CONC 33.3 g/dL (32.0-36.0); Mean Corpuscular Hemoglobin 29.6 pg (27.0-31.0); Mean Corpuscular Volume 88.9 fL (78.0-98.0); Mean Platelet Volume 6.6 fL (7.4-10.4); Platelet Count 512 thou/uL (130-400); RBC Distribution Width 13.3 % (11.5-14.5); Red Blood Cell (RBC) Count 4.08 mill/uL (4.20-5.40); White Blood Cell (WBC) Count 11.2 thou/uL (4.8-10.8)
[2020-08-11 06:38] LABS: Anion Gap 13 mmol/L (10-20); BUN (Urea Nitrogen) 17 mg/dL (9.8-20.1); Calc. Creatinine Clearance 88 mL/min (70-130); Calcium 8.8 mg/dL (7.8-10.44); Carbon Dioxide 20 mmol/L (22-29); Chloride 106 mmol/L (98-107); Glucose 214 mg/dL (70-105); Potassium 4.2 mmol/L (3.5-5.1); Sodium 135 mmol/L (136-145)
[2020-08-11] MEDS: Dexamethasone 4 mg/ml Vial SLOW IVP SCH (09:12)
[2020-08-11] MEDS: Zinc Sulfate 220 MG CAP PO SCH (09:12)
[2020-08-11] MEDS: Ascorbic Acid 500 mg Chewable Tablet PO SCH (09:13)
[2020-08-11] MEDS: Cholecalciferol (Vitamin D3) 400 UNITS TAB PO SCH (09:13)
[2020-08-11] MEDS: Enoxaparin Sodium 40 MG/0.4 ML SYRINGE SC SCH (09:13)
[2020-08-11 09:38] LABS: Hemoglobin A1c 8.6 % (4.0-6.0)
[2020-08-11] MEDS ORDERED: methylPREDNISolone Sod Succ/PF 125 MG/2 ML VIAL IVP SCH (18:45)
[2020-08-11] MEDS: Benzonatate 100 MG CAP PO SCH (19:37)
[2020-08-11] MEDS: Famotidine 20 MG TAB PO SCH (19:37)
[2020-08-12] MEDS: Albuterol 200 PUFF (6.7GM INHALER) INH SCH ×6 (02:40→22:04)
[2020-08-12 05:06] LABS: SARS-CoV-2 PCR by NAA DETECTED (NotDetected)
[2020-08-12] MEDS: HumaLOG 300 UNITS/3 ML VIAL SC PRN ×4 (05:28→20:17)
[2020-08-12] MEDS: Ascorbic Acid 500 mg Chewable Tablet PO SCH (08:15)
[2020-08-12] MEDS: Enoxaparin Sodium 40 MG/0.4 ML SYRINGE SC SCH ×2 (08:15→20:19)
[2020-08-12] MEDS: Cholecalciferol (Vitamin D3) 400 UNITS TAB PO SCH (08:16)
[2020-08-12] MEDS: Zinc Sulfate 220 MG CAP PO SCH (08:16)
[2020-08-12] MEDS: Benzonatate 100 MG CAP PO SCH ×3 (08:16→20:19)
[2020-08-12] MEDS: Famotidine 20 MG TAB PO SCH ×2 (08:16→20:19)
[2020-08-12] MEDS: Dexamethasone 4 mg/ml Vial SLOW IVP SCH (08:16)
[2020-08-12] MEDS ORDERED: Insulin Regular 300 UNITS/3 ML VIAL SC SCH (17:15)
[2020-08-12 20:33] LABS: SARS-CoV-2 IgG Ab Reactive (NonReactive); SARS-CoV-2 IgG Index 7.66 S/CO (< 1.40)
[2020-08-13] MEDS: Albuterol 200 PUFF (6.7GM INHALER) INH SCH ×6 (02:50→22:50)
[2020-08-13] MEDS: Cholecalciferol (Vitamin D3) 400 UNITS TAB PO SCH (08:00)
[2020-08-13] MEDS: Enoxaparin Sodium 40 MG/0.4 ML SYRINGE SC SCH ×2 (08:00→20:16)
[2020-08-13] MEDS: Benzonatate 100 MG CAP PO SCH ×3 (08:00→20:15)
[2020-08-13] MEDS: Famotidine 20 MG TAB PO SCH ×2 (08:00→20:15)
[2020-08-13] MEDS: Ascorbic Acid 500 mg Chewable Tablet PO SCH (08:00)
[2020-08-13] MEDS: Zinc Sulfate 220 MG CAP PO SCH (08:01)
[2020-08-13] MEDS: Dexamethasone 4 mg/ml Vial SLOW IVP SCH ×2 (08:01→20:15)
[2020-08-13] MEDS: HumaLOG 300 UNITS/3 ML VIAL SC PRN ×3 (12:39→21:10)
[2020-08-14] MEDS: Albuterol 200 PUFF (6.7GM INHALER) INH SCH ×6 (02:38→21:45)
[2020-08-14] MEDS: HumaLOG 300 UNITS/3 ML VIAL SC PRN ×4 (05:48→21:04)
[2020-08-14] MEDS: Famotidine 20 MG TAB PO SCH ×2 (08:15→21:01)
[2020-08-14] MEDS: Enoxaparin Sodium 40 MG/0.4 ML SYRINGE SC SCH ×2 (08:15→21:02)
[2020-08-14] MEDS: Benzonatate 100 MG CAP PO SCH ×3 (08:15→21:02)
[2020-08-14] MEDS: Cholecalciferol (Vitamin D3) 400 UNITS TAB PO SCH (08:15)
[2020-08-14] MEDS: Zinc Sulfate 220 MG CAP PO SCH (08:16)
[2020-08-14] MEDS: Dexamethasone 4 mg/ml Vial SLOW IVP SCH ×2 (08:16→21:02)
[2020-08-14] MEDS: Ascorbic Acid 500 mg Chewable Tablet PO SCH (08:16)
[2020-08-15] MEDS: Albuterol 200 PUFF (6.7GM INHALER) INH SCH ×6 (02:40→22:02)
[2020-08-15] MEDS: HumaLOG 300 UNITS/3 ML VIAL SC PRN ×4 (05:30→20:31)
[2020-08-15] MEDS: Ascorbic Acid 500 mg Chewable Tablet PO SCH (09:03)
[2020-08-15] MEDS: Zinc Sulfate 220 MG CAP PO SCH (09:03)
[2020-08-15] MEDS: Famotidine 20 MG TAB PO SCH ×2 (09:03→20:23)
[2020-08-15] MEDS: Enoxaparin Sodium 40 MG/0.4 ML SYRINGE SC SCH ×2 (09:03→20:24)
[2020-08-15] MEDS: Benzonatate 100 MG CAP PO SCH ×3 (09:03→20:23)
[2020-08-15] MEDS: Cholecalciferol (Vitamin D3) 400 UNITS TAB PO SCH (09:03)
[2020-08-15] MEDS: Dexamethasone 4 mg/ml Vial SLOW IVP SCH ×2 (09:06→20:23)
[2020-08-15 16:08] LABS: Anion Gap 14 mmol/L (10-20); BUN (Urea Nitrogen) 35 mg/dL (9.8-20.1); CRP (Inflammatory) 1.23 mg/dL (= or < 0.5); Calc. Creatinine Clearance 67 mL/min (70-130); Calcium 8.9 mg/dL (7.8-10.44); Carbon Dioxide 20 mmol/L (22-29); Chloride 106 mmol/L (98-107); Glucose 431 mg/dL (70-105); Potassium 4.5 mmol/L (3.5-5.1); Sodium 135 mmol/L (136-145)
[2020-08-15 16:14] LABS: Band 3 % (5-11); Hemoglobin 13.9 g/dL (12.0-16.0); Lymphocytes 9 % (21-51); MDiff Complete? YES; Mean Corpuscular HGB CONC 34.2 g/dL (32.0-36.0); Mean Corpuscular Hemoglobin 30.1 pg (27.0-31.0); Mean Corpuscular Volume 87.9 fL (78.0-98.0); Mean Platelet Volume 7.1 fL (7.4-10.4); Monocytes 3 % (0-10); Neutrophil 85 % (42-75); Platelet Count 599 thou/uL (130-400); Platelet Morphology Comment Appears Increased; RBC Distribution Width 13.5 % (11.5-14.5); RBC Morphology Normal; Red Blood Cell (RBC) Count 4.63 mill/uL (4.20-5.40); White Blood Cell (WBC) Count 15.4 thou/uL (4.8-10.8)
[2020-08-15] MEDS: NPH, Human Insulin Isophane 300 UNIT/3 ML VIAL SC SCH (21:11)
[2020-08-15] MEDS: Acetaminophen 325 MG TAB PO PRN (21:45)
[2020-08-16] MEDS: Albuterol 200 PUFF (6.7GM INHALER) INH SCH ×6 (02:30→22:10)
[2020-08-16] MEDS: HumaLOG 300 UNITS/3 ML VIAL SC PRN ×3 (05:09→20:54)
[2020-08-16] MEDS: Dexamethasone 4 mg/ml Vial SLOW IVP SCH (08:14)
[2020-08-16] MEDS: Cholecalciferol (Vitamin D3) 400 UNITS TAB PO SCH (08:14)
[2020-08-16] MEDS: Benzonatate 100 MG CAP PO SCH ×3 (08:14→20:49)
[2020-08-16] MEDS: Zinc Sulfate 220 MG CAP PO SCH (08:14)
[2020-08-16] MEDS: Ascorbic Acid 500 mg Chewable Tablet PO SCH (08:14)
[2020-08-16] MEDS: NPH, Human Insulin Isophane 300 UNIT/3 ML VIAL SC SCH ×2 (08:14→20:53)
[2020-08-16] MEDS: Enoxaparin Sodium 40 MG/0.4 ML SYRINGE SC SCH (08:14)
[2020-08-16] MEDS: Famotidine 20 MG TAB PO SCH ×2 (08:14→20:48)
[2020-08-16] MEDS: Morphine 2 MG/ML VIAL SLOW IVP PRN ×2 (11:25→17:11)
[2020-08-16] MEDS ORDERED: Meropenem 2 GM in Admixture Fee 1 EACH IVPB SCH (14:00)
[2020-08-16] MEDS: Meropenem 2 GM in Sodium Chloride 0.9% 100 ML IVPB SCH ×2 (15:08→21:49)
[2020-08-16] MEDS: Vancomycin 1 GM in Premix Bag 1 BAG IVPB SCH (15:42)
[2020-08-16] MEDS: methylPREDNISolone Sod Succ/PF 125 MG/2 ML VIAL IVP SCH (17:11)
[2020-08-16] MEDS ORDERED: methylPREDNISolone Sod Succ 40 MG VIAL IVP SCH (18:00)
[2020-08-16] MEDS: Enoxaparin Sodium 60 MG/0.6 ML SYRINGE SC SCH (20:49)
[2020-08-16 21:22] LABS: SARS-CoV-2 IgG Ab Reactive (NonReactive); SARS-CoV-2 IgG Index 7.42 S/CO (< 1.40)
[2020-08-17] MEDS: methylPREDNISolone Sod Succ/PF 125 MG/2 ML VIAL IVP SCH ×4 (00:13→17:54)
[2020-08-17] MEDS: Vancomycin 1 GM in Premix Bag 1 BAG IVPB SCH ×2 (03:26→15:05)
[2020-08-17] MEDS: Albuterol 200 PUFF (6.7GM INHALER) INH SCH ×6 (03:37→23:15)
[2020-08-17] MEDS: Meropenem 2 GM in Sodium Chloride 0.9% 100 ML IVPB SCH ×3 (05:47→22:25)
[2020-08-17] MEDS: HumaLOG 300 UNITS/3 ML VIAL SC PRN ×4 (05:58→15:56)
[2020-08-17] MEDS: Morphine 2 MG/ML VIAL SLOW IVP PRN ×2 (07:32→15:40)
[2020-08-17] MEDS: Cholecalciferol (Vitamin D3) 400 UNITS TAB PO SCH ×2 (09:09→09:52)
[2020-08-17] MEDS: Famotidine 20 MG TAB PO SCH ×3 (09:09→20:18)
[2020-08-17] MEDS: Ascorbic Acid 500 mg Chewable Tablet PO SCH ×2 (09:09→09:52)
[2020-08-17] MEDS: Enoxaparin Sodium 60 MG/0.6 ML SYRINGE SC SCH ×2 (09:09→20:17)
[2020-08-17] MEDS: Benzonatate 100 MG CAP PO SCH ×3 (09:09→20:17)
[2020-08-17] MEDS: Zinc Sulfate 220 MG CAP PO SCH (09:09)
[2020-08-17] MEDS: NPH, Human Insulin Isophane 300 UNIT/3 ML VIAL SC SCH ×2 (09:14→22:47)
[2020-08-17] MEDS ORDERED: Ketorolac Tromethamine 30 MG/ML VIAL IVP PRN (11:53)
[2020-08-17 19:46] LABS: Actual Bicarbonate (HCO3a) 23.9 mEq/L (22-28); Base Excess (BEa) -0.8 mEq/L (-2.0 to +3.0); CO2 Tension 39.9 mmHg (35.0-45.0); Calcium, Ionized (arterial) 1.25 mmol/L (1.12-1.30); Carboxyhemoglobin (COHb) 0.4 gm% (0.0-3.0); Hemoglobin (Hb) 15.4 g/dL (12.0-16.0); Potassium - ABG Lab 4.53 mmol/L (3.70-5.30)
[2020-08-17] MEDS ORDERED: PROPOFOL 20 ML ONE (20:45)
[2020-08-17] MEDS ORDERED: Propofol 1,000 MG/100 ML VIAL IV ONE (20:45)
[2020-08-17 21:07] LABS: O2 Tension (PaO2), arterial 57.1 mmHg (80.0-100.0); Puncture Site LRA
[2020-08-17 21:08] LABS: ALV-art Gradient 392.125 mmHg (0-20)
[2020-08-17] MEDS: Lorazepam 2 MG/ML VIAL SLOW IVP PRN (21:10)
[2020-08-17] MEDS ORDERED: Lorazepam 2 MG/ML VIAL ONE (21:20)
[2020-08-17] MEDS ORDERED: Propofol BOLUS 1,000 MG/100 ML VIAL IV PRN (21:30)
[2020-08-17] MEDS ORDERED: Fentanyl BOLUS 250 ML IVPB PRN (21:30)
[2020-08-17] MEDS ORDERED: Morphine 2 MG/ML VIAL SLOW IVP PRN (21:30)
[2020-08-17] MEDS ORDERED: Fentanyl CADD 100 ML ONE (21:34)
[2020-08-18] MEDS: methylPREDNISolone Sod Succ/PF 125 MG/2 ML VIAL IVP SCH ×4 (00:43→16:59)
[2020-08-18 02:03] LABS: #Basophils 0.1 thou/uL (0.0-0.2); #Lymphocytes 1.7 thou/uL (1.20-3.40); #Neutrophils 16.5 thou/uL (1.40-6.50); %Basophils 0.3 % (0.0-1.0); %Eosinophils 0.2 % (0.0-10.0); %Lymphocytes 8.7 % (21.0-51.0); %Monocytes 5.1 % (0.0-10.0); %Neutrophils 85.7 % (42.0-75.0); Hemoglobin 13.8 g/dL (12.0-16.0); Mean Corpuscular HGB CONC 33.9 g/dL (32.0-36.0); Mean Corpuscular Hemoglobin 29.6 pg (27.0-31.0); Mean Corpuscular Volume 87.4 fL (78.0-98.0); Mean Platelet Volume 7.4 fL (7.4-10.4); Platelet Count 423 thou/uL (130-400); RBC Distribution Width 13.7 % (11.5-14.5); Red Blood Cell (RBC) Count 4.67 mill/uL (4.20-5.40); White Blood Cell (WBC) Count 19.2 thou/uL (4.8-10.8)
[2020-08-18] MEDS: Albuterol 200 PUFF (6.7GM INHALER) INH SCH ×6 (02:26→21:58)
[2020-08-18 02:43] LABS: Anion Gap 15 mmol/L (10-20); BUN (Urea Nitrogen) 38 mg/dL (9.8-20.1); Calc. Creatinine Clearance 80 mL/min (70-130); Calcium 8.5 mg/dL (7.8-10.44); Carbon Dioxide 18 mmol/L (22-29); Chloride 108 mmol/L (98-107); Glucose 240 mg/dL (70-105); Potassium 4.4 mmol/L (3.5-5.1); Sodium 137 mmol/L (136-145)
[2020-08-18] MEDS: HumaLOG 300 UNITS/3 ML VIAL SC PRN ×4 (02:53→15:43)
[2020-08-18] MEDS: Vancomycin 1 GM in Premix Bag 1 BAG IVPB SCH ×2 (03:06→14:04)
[2020-08-18] MEDS: Lorazepam 2 MG/ML VIAL SLOW IVP PRN (05:46)
[2020-08-18] MEDS: Meropenem 2 GM in Sodium Chloride 0.9% 100 ML IVPB SCH ×3 (06:41→22:03)
[2020-08-18] MEDS: Cholecalciferol (Vitamin D3) 400 UNITS TAB PO SCH (07:50)
[2020-08-18] MEDS: Famotidine 20 MG TAB PO SCH ×2 (07:53→22:03)
[2020-08-18] MEDS: Zinc Sulfate 220 MG CAP PO SCH (07:54)
[2020-08-18] MEDS: Ascorbic Acid 500 mg Chewable Tablet PO SCH (07:54)
[2020-08-18] MEDS: Enoxaparin Sodium 60 MG/0.6 ML SYRINGE SC SCH ×2 (07:55→22:03)
[2020-08-18] MEDS: NPH, Human Insulin Isophane 300 UNIT/3 ML VIAL SC SCH ×2 (07:55→22:12)
[2020-08-18] MEDS: Propofol 1,000 MG/100 ML VIAL IV PRN ×2 (09:31→22:15)
[2020-08-18] MEDS: Benzonatate 100 MG CAP PO SCH ×3 (10:08→22:03)
[2020-08-18] MEDS ORDERED: Fentanyl CADD 100 ML ONE (13:06)
[2020-08-18] MEDS: Fentanyl CADD 100 ML IV SCH (13:11)
[2020-08-18 13:33] LABS: Actual Bicarbonate (HCO3a) 22.9 mEq/L (22-28); Calcium, Ionized (arterial) 1.25 mmol/L (1.12-1.30); Carboxyhemoglobin (COHb) 0.5 gm% (0.0-3.0); Hemoglobin (Hb) 14.5 g/dL (12.0-16.0); O2 Tension (PaO2), arterial 62.9 mmHg (80.0-100.0); Potassium - ABG Lab 4.25 mmol/L (3.70-5.30); pH, Arterial 7.42 (7.35-7.45)
[2020-08-18 14:02] LABS: Puncture Site RRA
[2020-08-19] MEDS: methylPREDNISolone Sod Succ/PF 125 MG/2 ML VIAL IVP SCH (00:22)
[2020-08-19] MEDS: Albuterol 200 PUFF (6.7GM INHALER) INH SCH ×6 (02:27→21:27)
[2020-08-19] MEDS: Vancomycin 1 GM in Premix Bag 1 BAG IVPB SCH ×2 (03:14→14:14)
[2020-08-19 05:10] LABS: Anion Gap 13 mmol/L (10-20); BUN (Urea Nitrogen) 38 mg/dL (9.8-20.1); Calc. Creatinine Clearance 82 mL/min (70-130); Calcium 8.5 mg/dL (7.8-10.44); Carbon Dioxide 21 mmol/L (22-29); Chloride 106 mmol/L (98-107); Glucose 256 mg/dL (70-105); Potassium 4.1 mmol/L (3.5-5.1); Sodium 136 mmol/L (136-145)
[2020-08-19] MEDS: HumaLOG 300 UNITS/3 ML VIAL SC PRN ×4 (05:21→20:43)
[2020-08-19 05:34] LABS: Band 6 % (5-11); Hemoglobin 13.7 g/dL (12.0-16.0); Lymphocytes 4 % (21-51); MDiff Complete? YES; Mean Corpuscular HGB CONC 33.3 g/dL (32.0-36.0); Mean Corpuscular Hemoglobin 29.4 pg (27.0-31.0); Mean Corpuscular Volume 88.2 fL (78.0-98.0); Mean Platelet Volume 8.2 fL (7.4-10.4); Monocytes 1 % (0-10); Neutrophil 89 % (42-75); Platelet Count 385 thou/uL (130-400); RBC Distribution Width 13.8 % (11.5-14.5); Red Blood Cell (RBC) Count 4.66 mill/uL (4.20-5.40); White Blood Cell (WBC) Count 21.6 thou/uL (4.8-10.8)
[2020-08-19] MEDS: Meropenem 2 GM in Sodium Chloride 0.9% 100 ML IVPB SCH ×3 (05:36→22:15)
[2020-08-19] MEDS: methylPREDNISolone Sod Succ 40 MG VIAL IVP SCH ×3 (05:36→17:38)
[2020-08-19] MEDS ORDERED: Fentanyl CADD 0 ML ONE (07:49)
[2020-08-19] MEDS: Enoxaparin Sodium 60 MG/0.6 ML SYRINGE SC SCH ×2 (07:52→20:37)
[2020-08-19] MEDS: Famotidine 20 MG TAB PO SCH ×2 (07:53→20:37)
[2020-08-19] MEDS: Zinc Sulfate 220 MG CAP PO SCH (07:53)
[2020-08-19] MEDS: Ascorbic Acid 500 mg Chewable Tablet PO SCH (07:53)
[2020-08-19] MEDS: Cholecalciferol (Vitamin D3) 400 UNITS TAB PO SCH (07:53)
[2020-08-19] MEDS: Fentanyl CADD 100 ML IV SCH (07:54)
[2020-08-19] MEDS: Lorazepam 2 MG/ML VIAL SLOW IVP PRN ×2 (08:02→14:37)
[2020-08-19] MEDS: NPH, Human Insulin Isophane 300 UNIT/3 ML VIAL SC SCH (08:06)
[2020-08-19] MEDS: Benzonatate 100 MG CAP PO SCH ×3 (08:46→20:37)
[2020-08-19] MEDS ORDERED: Ivermectin 3 MG TAB PO SCH ×2 (09:00)
[2020-08-19] MEDS ORDERED: Clopidogrel Bisulfate 75 MG TAB ONE (12:18)
[2020-08-19] MEDS: Propofol 1,000 MG/100 ML VIAL IV PRN (15:16)
[2020-08-19] MEDS ORDERED: Insulin Glargine 8 UNITS in Pre-Filled Syringe 1 EACH SC SCH (21:00)
[2020-08-19] MEDS ORDERED: Insulin Glargine 16 UNITS in Pre-Filled Syringe 1 EACH SC SCH (21:00)
[2020-08-19] MEDS ORDERED: Fentanyl CADD 100 ML ONE (21:45)
[2020-08-20] MEDS: methylPREDNISolone Sod Succ 40 MG VIAL IVP SCH ×5 (00:43→22:49)
[2020-08-20] MEDS: Albuterol 200 PUFF (6.7GM INHALER) INH SCH ×6 (03:26→22:01)
[2020-08-20] MEDS: Vancomycin 1 GM in Premix Bag 1 BAG IVPB SCH ×2 (04:18→15:35)
[2020-08-20] MEDS: HumaLOG 300 UNITS/3 ML VIAL SC PRN ×4 (04:25→20:33)
[2020-08-20] MEDS: Propofol 1,000 MG/100 ML VIAL IV PRN ×3 (04:34→20:33)
[2020-08-20] MEDS: Meropenem 2 GM in Sodium Chloride 0.9% 100 ML IVPB SCH ×3 (05:57→20:54)
[2020-08-20 06:58] LABS: #Eosinphils 0.1 thou/uL (0.0-0.7); #Lymphocytes 1.1 thou/uL (1.20-3.40); #Monocytes 0.4 thou/uL (0.11-0.59); #Neutrophils 14.6 thou/uL (1.40-6.50); %Basophils 0.1 % (0.0-1.0); %Eosinophils 0.4 % (0.0-10.0); %Lymphocytes 6.7 % (21.0-51.0); %Monocytes 2.6 % (0.0-10.0); %Neutrophils 90.3 % (42.0-75.0); Hemoglobin 12.3 g/dL (12.0-16.0); Mean Corpuscular Hemoglobin 29.3 pg (27.0-31.0); Mean Corpuscular Volume 88.6 fL (78.0-98.0); Mean Platelet Volume 8.6 fL (7.4-10.4); Platelet Count 292 thou/uL (130-400); RBC Distribution Width 13.8 % (11.5-14.5); White Blood Cell (WBC) Count 16.2 thou/uL (4.8-10.8)
[2020-08-20 07:18] LABS: Anion Gap 13 mmol/L (10-20); BUN (Urea Nitrogen) 37 mg/dL (9.8-20.1); Calc. Creatinine Clearance 77 mL/min (70-130); Calcium 8.2 mg/dL (7.8-10.44); Carbon Dioxide 23 mmol/L (22-29); Chloride 104 mmol/L (98-107); Glucose 401 mg/dL (70-105); Potassium 4.2 mmol/L (3.5-5.1); Sodium 136 mmol/L (136-145)
[2020-08-20] MEDS ORDERED: Fentanyl CADD 100 ML ONE (07:21)
[2020-08-20] MEDS ORDERED: Insulin Glargine 8 UNITS in Pre-Filled Syringe 1 EACH SC SCH (09:00)
[2020-08-20] MEDS ORDERED: Insulin Glargine 30 UNITS in Pre-Filled Syringe 1 EACH SC SCH (09:00)
[2020-08-20] MEDS ORDERED: Insulin Glargine 16 UNITS in Pre-Filled Syringe 1 EACH SC SCH (09:00)
[2020-08-20] MEDS: Benzonatate 100 MG CAP PO SCH ×3 (09:33→20:33)
[2020-08-20] MEDS: Cholecalciferol (Vitamin D3) 400 UNITS TAB PO SCH (09:38)
[2020-08-20] MEDS: Famotidine 20 MG TAB PO SCH (09:38)
[2020-08-20] MEDS: Ascorbic Acid 500 mg Chewable Tablet PO SCH (09:38)
[2020-08-20] MEDS: Enoxaparin Sodium 60 MG/0.6 ML SYRINGE SC SCH ×2 (09:38→20:34)
[2020-08-20] MEDS: Zinc Sulfate 220 MG CAP PO SCH (09:38)
[2020-08-20] MEDS: Insulin Glargine 30 UNITS in Pre-Filled Syringe 1 EACH SC SCH (20:33)
[2020-08-21 02:18] LABS: #Eosinphils 0.1 thou/uL (0.0-0.7); #Lymphocytes 1.4 thou/uL (1.20-3.40); #Monocytes 0.7 thou/uL (0.11-0.59); #Neutrophils 15.1 thou/uL (1.40-6.50); %Basophils 0.1 % (0.0-1.0); %Eosinophils 0.3 % (0.0-10.0); %Monocytes 3.9 % (0.0-10.0); %Neutrophils 87.7 % (42.0-75.0); Mean Corpuscular HGB CONC 34.4 g/dL (32.0-36.0); Mean Platelet Volume 8.7 fL (7.4-10.4); Platelet Count 224 thou/uL (130-400); RBC Distribution Width 13.7 % (11.5-14.5); Red Blood Cell (RBC) Count 3.86 mill/uL (4.20-5.40); White Blood Cell (WBC) Count 17.3 thou/uL (4.8-10.8)
[2020-08-21] MEDS: Propofol 1,000 MG/100 ML VIAL IV PRN ×3 (02:40→21:41)
[2020-08-21] MEDS: Vancomycin 1 GM in Premix Bag 1 BAG IVPB SCH (02:40)
[2020-08-21 02:46] LABS: Anion Gap 11 mmol/L (10-20); BUN (Urea Nitrogen) 36 mg/dL (9.8-20.1); Calc. Creatinine Clearance 87 mL/min (70-130); Calcium 8.1 mg/dL (7.8-10.44); Carbon Dioxide 25 mmol/L (22-29); Chloride 106 mmol/L (98-107); Glucose 312 mg/dL (70-105); Potassium 4.5 mmol/L (3.5-5.1); Sodium 137 mmol/L (136-145)
[2020-08-21] MEDS: Albuterol 200 PUFF (6.7GM INHALER) INH SCH ×6 (02:52→22:10)
[2020-08-21] MEDS: Fentanyl CADD 100 ML IV SCH (04:02)
[2020-08-21] MEDS: methylPREDNISolone Sod Succ 40 MG VIAL IVP SCH ×4 (04:51→23:21)
[2020-08-21] MEDS: Meropenem 2 GM in Sodium Chloride 0.9% 100 ML IVPB SCH ×3 (05:56→21:42)
[2020-08-21 07:40] LABS: Actual Bicarbonate (HCO3a) 24.8 mEq/L (22-28); Base Excess (BEa) 0.6 mEq/L (-2.0 to +3.0); CO2 Tension 38.3 mmHg (35.0-45.0); Carboxyhemoglobin (COHb) 0.4 gm% (0.0-3.0); Potassium - ABG Lab 4.38 mmol/L (3.70-5.30); pH, Arterial 7.43 (7.35-7.45)
[2020-08-21 07:41] LABS: ALV-art Gradient 270.275 mmHg (0-20); Puncture Site RRA
[2020-08-21] MEDS: Furosemide 40 MG/4 ML VIAL SLOW IVP SCH (09:08)
[2020-08-21] MEDS: Enoxaparin Sodium 60 MG/0.6 ML SYRINGE SC SCH ×2 (09:08→21:42)
[2020-08-21] MEDS: Zinc Sulfate 220 MG CAP PO SCH (09:08)
[2020-08-21] MEDS: Cholecalciferol (Vitamin D3) 400 UNITS TAB PO SCH (09:08)
[2020-08-21] MEDS: Ascorbic Acid 500 mg Chewable Tablet PO SCH (09:08)
[2020-08-21] MEDS: Benzonatate 100 MG CAP PO SCH ×3 (09:09→21:42)
[2020-08-21] MEDS: Insulin Glargine 40 UNITS in Pre-Filled Syringe 1 EACH SC SCH (09:30)
[2020-08-21] MEDS: Lorazepam 2 MG/ML VIAL SLOW IVP PRN (10:36)
[2020-08-21] MEDS: HumaLOG 300 UNITS/3 ML VIAL SC PRN ×3 (12:21→21:45)
[2020-08-21] MEDS: Insulin Glargine 30 UNITS in Pre-Filled Syringe 1 EACH SC SCH (21:44)
[2020-08-22] MEDS ORDERED: Fentanyl CADD 100 ML ONE ×2 (01:17→20:20)
[2020-08-22] MEDS: Lorazepam 2 MG/ML VIAL SLOW IVP PRN ×2 (01:31→19:56)
[2020-08-22] MEDS: Albuterol 200 PUFF (6.7GM INHALER) INH SCH ×6 (02:28→22:23)
[2020-08-22 05:13] LABS: Band 5 % (5-11); Hemoglobin 11.9 g/dL (12.0-16.0); Lymphocytes 4 % (21-51); MDiff Complete? YES; Mean Corpuscular HGB CONC 32.6 g/dL (32.0-36.0); Mean Corpuscular Hemoglobin 29.1 pg (27.0-31.0); Mean Corpuscular Volume 89.2 fL (78.0-98.0); Mean Platelet Volume 9.2 fL (7.4-10.4); Monocytes 2 % (0-10); Neutrophil 89 % (42-75); Platelet Count 211 thou/uL (130-400); RBC Distribution Width 13.8 % (11.5-14.5); White Blood Cell (WBC) Count 22.1 thou/uL (4.8-10.8)
[2020-08-22 05:14] LABS: Anion Gap 11 mmol/L (10-20); BUN (Urea Nitrogen) 41 mg/dL (9.8-20.1); Calc. Creatinine Clearance 91 mL/min (70-130); Calcium 8.2 mg/dL (7.8-10.44); Carbon Dioxide 27 mmol/L (22-29); Chloride 106 mmol/L (98-107); Glucose 200 mg/dL (70-105); Potassium 3.9 mmol/L (3.5-5.1); Sodium 140 mmol/L (136-145)
[2020-08-22] MEDS: methylPREDNISolone Sod Succ 40 MG VIAL IVP SCH ×4 (05:25→23:48)
[2020-08-22] MEDS: Meropenem 2 GM in Sodium Chloride 0.9% 100 ML IVPB SCH ×3 (05:25→21:00)
[2020-08-22] MEDS: HumaLOG 300 UNITS/3 ML VIAL SC PRN ×4 (05:25→21:05)
[2020-08-22] MEDS: Furosemide 40 MG/4 ML VIAL SLOW IVP SCH (09:13)
[2020-08-22] MEDS: Ascorbic Acid 500 mg Chewable Tablet PO SCH (09:13)
[2020-08-22] MEDS: Zinc Sulfate 220 MG CAP PO SCH (09:13)
[2020-08-22] MEDS: Insulin Glargine 40 UNITS in Pre-Filled Syringe 1 EACH SC SCH (09:14)
[2020-08-22] MEDS: Cholecalciferol (Vitamin D3) 400 UNITS TAB PO SCH (09:14)
[2020-08-22] MEDS: Enoxaparin Sodium 60 MG/0.6 ML SYRINGE SC SCH ×2 (09:14→20:58)
[2020-08-22] MEDS: Benzonatate 100 MG CAP PO SCH ×3 (10:00→20:57)
[2020-08-22] MEDS: Propofol 1,000 MG/100 ML VIAL IV PRN ×2 (11:05→20:58)
[2020-08-22] MEDS ORDERED: Fluconazole 100 MG TAB PO SCH (15:30)
[2020-08-22] MEDS: Insulin Glargine 30 UNITS in Pre-Filled Syringe 1 EACH SC SCH (20:58)
[2020-08-23] MEDS: Albuterol 200 PUFF (6.7GM INHALER) INH SCH ×6 (02:29→21:22)
[2020-08-23] MEDS: Meropenem 2 GM in Sodium Chloride 0.9% 100 ML IVPB SCH ×3 (05:10→23:23)
[2020-08-23] MEDS: HumaLOG 300 UNITS/3 ML VIAL SC PRN ×4 (05:12→21:02)
[2020-08-23] MEDS: methylPREDNISolone Sod Succ 40 MG VIAL IVP SCH ×4 (05:12→23:23)
[2020-08-23] MEDS: Insulin Glargine 40 UNITS in Pre-Filled Syringe 1 EACH SC SCH (08:40)
[2020-08-23] MEDS: Cholecalciferol (Vitamin D3) 400 UNITS TAB PO SCH (08:41)
[2020-08-23] MEDS: Ascorbic Acid 500 mg Chewable Tablet PO SCH (08:41)
[2020-08-23] MEDS: Benzonatate 100 MG CAP PO SCH ×3 (08:41→20:57)
[2020-08-23] MEDS: Furosemide 40 MG/4 ML VIAL SLOW IVP SCH (08:42)
[2020-08-23] MEDS: Zinc Sulfate 220 MG CAP PO SCH (08:42)
[2020-08-23] MEDS: Enoxaparin Sodium 60 MG/0.6 ML SYRINGE SC SCH ×2 (08:42→20:56)
[2020-08-23] MEDS: Propofol 1,000 MG/100 ML VIAL IV PRN ×2 (10:51→20:57)
[2020-08-23] MEDS ORDERED: Polyethylene Glycol 3350 17 GM Packet PER TUBE SCH (12:00)
[2020-08-23] MEDS ORDERED: Senokot S 8.6-50 MG TAB PER TUBE SCH (12:00)
[2020-08-23] MEDS ORDERED: Fentanyl CADD 100 ML ONE (16:21)
[2020-08-23] MEDS: Vecuronium 10 MG VIAL IV PRN (16:37)
[2020-08-23] MEDS: Senokot S 8.6-50 MG TAB PER TUBE SCH (20:56)
[2020-08-23] MEDS: Insulin Glargine 30 UNITS in Pre-Filled Syringe 1 EACH SC SCH (21:00)
[2020-08-24] MEDS: Albuterol 200 PUFF (6.7GM INHALER) INH SCH ×6 (02:14→22:12)
[2020-08-24 04:28] LABS: #Monocytes 0.5 thou/uL (0.11-0.59); #Neutrophils 16.2 thou/uL (1.40-6.50); %Eosinophils 0.3 % (0.0-10.0); %Lymphocytes 5.8 % (21.0-51.0); %Monocytes 2.7 % (0.0-10.0); %Neutrophils 91.2 % (42.0-75.0); Hemoglobin 11.7 g/dL (12.0-16.0); Mean Corpuscular Hemoglobin 29.7 pg (27.0-31.0); Mean Corpuscular Volume 92.9 fL (78.0-98.0); Platelet Count 197 thou/uL (130-400); RBC Distribution Width 14.1 % (11.5-14.5); Red Blood Cell (RBC) Count 3.92 mill/uL (4.20-5.40); White Blood Cell (WBC) Count 17.8 thou/uL (4.8-10.8)
[2020-08-24] MEDS: HumaLOG 300 UNITS/3 ML VIAL SC PRN ×3 (06:00→21:53)
[2020-08-24] MEDS: Meropenem 2 GM in Sodium Chloride 0.9% 100 ML IVPB SCH ×3 (06:00→21:52)
[2020-08-24] MEDS: methylPREDNISolone Sod Succ 40 MG VIAL IVP SCH ×4 (06:00→23:41)
[2020-08-24] MEDS: Zinc Sulfate 220 MG CAP PO SCH (09:57)
[2020-08-24] MEDS: Benzonatate 100 MG CAP PO SCH ×3 (09:57→21:51)
[2020-08-24] MEDS: Cholecalciferol (Vitamin D3) 400 UNITS TAB PO SCH (09:57)
[2020-08-24] MEDS: Senokot S 8.6-50 MG TAB PER TUBE SCH ×2 (09:57→21:51)
[2020-08-24] MEDS: Furosemide 40 MG/4 ML VIAL SLOW IVP SCH (09:57)
[2020-08-24] MEDS: Ascorbic Acid 500 mg Chewable Tablet PO SCH (09:57)
[2020-08-24] MEDS: Polyethylene Glycol 3350 17 GM Packet PER TUBE SCH (09:57)
[2020-08-24] MEDS: Insulin Glargine 40 UNITS in Pre-Filled Syringe 1 EACH SC SCH (10:15)
[2020-08-24] MEDS ORDERED: Bisacodyl 10 MG SUPP PR PRN (11:16)
[2020-08-24] MEDS ORDERED: Fentanyl CADD 100 ML ONE (21:27)
[2020-08-24] MEDS: Enoxaparin Sodium 40 MG/0.4 ML SYRINGE SC SCH (21:51)
[2020-08-24] MEDS: Insulin Glargine 30 UNITS in Pre-Filled Syringe 1 EACH SC SCH (21:52)
[2020-08-25] MEDS: Propofol 1,000 MG/100 ML VIAL IV PRN (01:44)
[2020-08-25] MEDS: Albuterol 200 PUFF (6.7GM INHALER) INH SCH ×6 (02:24→22:28)
[2020-08-25 04:28] LABS: #Monocytes 0.8 thou/uL (0.11-0.59); #Neutrophils 14.5 thou/uL (1.40-6.50); %Eosinophils 0.3 % (0.0-10.0); %Lymphocytes 6.2 % (21.0-51.0); %Neutrophils 88.5 % (42.0-75.0); Hemoglobin 11.5 g/dL (12.0-16.0); Mean Corpuscular HGB CONC 33.3 g/dL (32.0-36.0); Mean Corpuscular Hemoglobin 30.1 pg (27.0-31.0); Mean Corpuscular Volume 90.5 fL (78.0-98.0); Platelet Count 198 thou/uL (130-400); RBC Distribution Width 14.3 % (11.5-14.5); Red Blood Cell (RBC) Count 3.82 mill/uL (4.20-5.40); White Blood Cell (WBC) Count 16.3 thou/uL (4.8-10.8)
[2020-08-25 04:34] LABS: Anion Gap 12 mmol/L (10-20); BUN (Urea Nitrogen) 43 mg/dL (9.8-20.1); Calc. Creatinine Clearance 101 mL/min (70-130); Calcium 8.2 mg/dL (7.8-10.44); Carbon Dioxide 30 mmol/L (22-29); Chloride 105 mmol/L (98-107); Glucose 153 mg/dL (70-105); Potassium 3.9 mmol/L (3.5-5.1); Sodium 143 mmol/L (136-145)
[2020-08-25] MEDS: methylPREDNISolone Sod Succ 40 MG VIAL IVP SCH ×4 (05:27→23:56)
[2020-08-25] MEDS: Meropenem 2 GM in Sodium Chloride 0.9% 100 ML IVPB SCH ×3 (05:36→22:05)
[2020-08-25] MEDS: Ascorbic Acid 500 mg Chewable Tablet PO SCH (09:50)
[2020-08-25] MEDS: Benzonatate 100 MG CAP PO SCH ×3 (09:55→21:34)
[2020-08-25] MEDS: Cholecalciferol (Vitamin D3) 400 UNITS TAB PO SCH (09:55)
[2020-08-25] MEDS: Furosemide 40 MG/4 ML VIAL SLOW IVP SCH (09:55)
[2020-08-25] MEDS: Senokot S 8.6-50 MG TAB PER TUBE SCH ×2 (09:55→21:34)
[2020-08-25] MEDS: Zinc Sulfate 220 MG CAP PO SCH (09:55)
[2020-08-25] MEDS: Enoxaparin Sodium 40 MG/0.4 ML SYRINGE SC SCH ×2 (09:55→21:34)
[2020-08-25] MEDS: Polyethylene Glycol 3350 17 GM Packet PER TUBE SCH (09:55)
[2020-08-25] MEDS: Insulin Glargine 40 UNITS in Pre-Filled Syringe 1 EACH SC SCH (09:59)
[2020-08-25] MEDS: Acetaminophen 325 MG TAB PO PRN (12:59)
[2020-08-25] MEDS: HumaLOG 300 UNITS/3 ML VIAL SC PRN (16:00)
[2020-08-25] MEDS: Insulin Glargine 30 UNITS in Pre-Filled Syringe 1 EACH SC SCH (21:34)
[2020-08-25] MEDS ORDERED: Fentanyl CADD 100 ML ONE (22:44)
[2020-08-26] MEDS: Albuterol 200 PUFF (6.7GM INHALER) INH SCH ×6 (02:51→22:26)
[2020-08-26] MEDS: methylPREDNISolone Sod Succ 40 MG VIAL IVP SCH ×4 (05:08→23:52)
[2020-08-26] MEDS: Meropenem 2 GM in Sodium Chloride 0.9% 100 ML IVPB SCH ×3 (06:41→22:08)
[2020-08-26] MEDS: Polyethylene Glycol 3350 17 GM Packet PER TUBE SCH (08:22)
[2020-08-26] MEDS: Zinc Sulfate 220 MG CAP PO SCH (08:22)
[2020-08-26] MEDS: Senokot S 8.6-50 MG TAB PER TUBE SCH ×2 (08:23→20:27)
[2020-08-26] MEDS: Enoxaparin Sodium 40 MG/0.4 ML SYRINGE SC SCH ×2 (08:23→20:27)
[2020-08-26] MEDS: Ascorbic Acid 500 mg Chewable Tablet PO SCH (08:23)
[2020-08-26] MEDS: Cholecalciferol (Vitamin D3) 400 UNITS TAB PO SCH (08:23)
[2020-08-26] MEDS: Furosemide 40 MG/4 ML VIAL SLOW IVP SCH (08:24)
[2020-08-26] MEDS: Insulin Glargine 40 UNITS in Pre-Filled Syringe 1 EACH SC SCH (08:24)
[2020-08-26] MEDS: Benzonatate 100 MG CAP PO SCH ×2 (08:27→14:58)
[2020-08-26] MEDS: Pantoprazole 40 MG GRANULES PACKET PER TUBE SCH ×2 (09:30→20:27)
[2020-08-26] MEDS: HumaLOG 300 UNITS/3 ML VIAL SC PRN (11:45)
[2020-08-26] MEDS: Lorazepam 2 MG/ML VIAL SLOW IVP PRN (11:58)
[2020-08-26] MEDS: Enoxaparin Sodium 60 MG/0.6 ML SYRINGE SC SCH (12:28)
[2020-08-26] MEDS ORDERED: Fentanyl CADD 100 ML ONE (20:12)
[2020-08-26] MEDS: Insulin Glargine 30 UNITS in Pre-Filled Syringe 1 EACH SC SCH (20:32)
[2020-08-27] MEDS: Albuterol 200 PUFF (6.7GM INHALER) INH SCH ×6 (03:03→21:53)
[2020-08-27 04:03] LABS: Band 10 % (5-11); Hemoglobin 13.6 g/dL (12.0-16.0); Lymphocytes 6 % (21-51); MDiff Complete? YES; Mean Corpuscular HGB CONC 32.5 g/dL (32.0-36.0); Mean Corpuscular Hemoglobin 29.6 pg (27.0-31.0); Mean Platelet Volume 9.9 fL (7.4-10.4); Monocytes 2 % (0-10); Neutrophil 81 % (42-75); Platelet Count 249 thou/uL (130-400); Platelet Morphology Comment Appears Adequate; RBC Distribution Width 14.6 % (11.5-14.5); Reactive Lymphocytes 1 % (0-10); Red Blood Cell (RBC) Count 4.58 mill/uL (4.20-5.40); White Blood Cell (WBC) Count 20.7 thou/uL (4.8-10.8)
[2020-08-27 04:13] LABS: Anion Gap 12 mmol/L (10-20); BUN (Urea Nitrogen) 58 mg/dL (9.8-20.1); Calc. Creatinine Clearance 92 mL/min (70-130); Calcium 8.5 mg/dL (7.8-10.44); Carbon Dioxide 29 mmol/L (22-29); Chloride 106 mmol/L (98-107); Glucose 158 mg/dL (70-105); Potassium 4.3 mmol/L (3.5-5.1); Sodium 143 mmol/L (136-145)
[2020-08-27] MEDS: HumaLOG 300 UNITS/3 ML VIAL SC PRN (04:25)
[2020-08-27] MEDS: methylPREDNISolone Sod Succ 40 MG VIAL IVP SCH ×3 (05:56→18:26)
[2020-08-27] MEDS: Lorazepam 2 MG/ML VIAL SLOW IVP PRN ×2 (08:00→20:37)
[2020-08-27] MEDS: Pantoprazole 40 MG GRANULES PACKET PER TUBE SCH ×2 (08:33→21:30)
[2020-08-27] MEDS: Zinc Sulfate 220 MG CAP PO SCH (08:33)
[2020-08-27] MEDS: Cholecalciferol (Vitamin D3) 400 UNITS TAB PO SCH (08:33)
[2020-08-27] MEDS: Polyethylene Glycol 3350 17 GM Packet PER TUBE SCH (08:33)
[2020-08-27] MEDS: Senokot S 8.6-50 MG TAB PER TUBE SCH ×2 (08:33→21:30)
[2020-08-27] MEDS: Enoxaparin Sodium 40 MG/0.4 ML SYRINGE SC SCH ×2 (08:34→21:30)
[2020-08-27] MEDS: Furosemide 40 MG/4 ML VIAL SLOW IVP SCH (08:34)
[2020-08-27] MEDS: Ascorbic Acid 500 mg Chewable Tablet PO SCH (08:34)
[2020-08-27] MEDS: Insulin Glargine 40 UNITS in Pre-Filled Syringe 1 EACH SC SCH (08:44)
[2020-08-27] MEDS ORDERED: Lidocaine 1% (PF) 30 ML VIAL ONE (08:58)
[2020-08-27] MEDS ORDERED: Rocuronium Bromide 10 MG/ML (10ML VIAL) ONE (09:01)
[2020-08-27] MEDS ORDERED: Fentanyl CADD 100 ML ONE ×2 (11:13→23:57)
[2020-08-27] MEDS: Insulin Glargine 30 UNITS in Pre-Filled Syringe 1 EACH SC SCH (21:30)
[2020-08-28] MEDS: methylPREDNISolone Sod Succ 40 MG VIAL IVP SCH ×4 (01:36→18:20)
[2020-08-28] MEDS: Albuterol 200 PUFF (6.7GM INHALER) INH SCH ×6 (02:13→21:41)
[2020-08-28 05:05] LABS: Mean Corpuscular HGB CONC 32.3 g/dL (32.0-36.0); Mean Corpuscular Hemoglobin 29.7 pg (27.0-31.0); Mean Corpuscular Volume 92.1 fL (78.0-98.0); Mean Platelet Volume 9.6 fL (7.4-10.4); Platelet Count 215 thou/uL (130-400); RBC Distribution Width 14.9 % (11.5-14.5); Red Blood Cell (RBC) Count 4.36 mill/uL (4.20-5.40); White Blood Cell (WBC) Count 16.8 thou/uL (4.8-10.8)
[2020-08-28 05:24] LABS: Band 2 % (5-11); Lymphocytes 3 % (21-51); MDiff Complete? YES; Monocytes 15 % (0-10); Neutrophil 80 % (42-75); Platelet Morphology Comment Appears Adequate; RBC Morphology Normal
[2020-08-28 05:26] LABS: Anion Gap 13 mmol/L (10-20); BUN (Urea Nitrogen) 49 mg/dL (9.8-20.1); Calc. Creatinine Clearance 101 mL/min (70-130); Calcium 8.3 mg/dL (7.8-10.44); Carbon Dioxide 28 mmol/L (22-29); Chloride 104 mmol/L (98-107); Glucose 162 mg/dL (70-105); Sodium 141 mmol/L (136-145)
[2020-08-28] MEDS ORDERED: Fentanyl BOLUS 250 ML IVPB PRN (07:31)
[2020-08-28] MEDS ORDERED: Fentanyl CADD 100 ML IV SCH (07:45)
[2020-08-28] MEDS: Zinc Sulfate 220 MG CAP PO SCH (09:43)
[2020-08-28] MEDS: Senokot S 8.6-50 MG TAB PER TUBE SCH ×2 (09:43→21:36)
[2020-08-28] MEDS: Polyethylene Glycol 3350 17 GM Packet PER TUBE SCH (09:43)
[2020-08-28] MEDS: Enoxaparin Sodium 40 MG/0.4 ML SYRINGE SC SCH ×2 (09:43→21:37)
[2020-08-28] MEDS: Furosemide 40 MG/4 ML VIAL SLOW IVP SCH (09:43)
[2020-08-28] MEDS: Ascorbic Acid 500 mg Chewable Tablet PO SCH (09:43)
[2020-08-28] MEDS: Cholecalciferol (Vitamin D3) 400 UNITS TAB PO SCH (09:44)
[2020-08-28] MEDS: Insulin Glargine 40 UNITS in Pre-Filled Syringe 1 EACH SC SCH (09:44)
[2020-08-28] MEDS: Pantoprazole 40 MG GRANULES PACKET PER TUBE SCH ×2 (09:44→21:36)
[2020-08-28] MEDS: HumaLOG 300 UNITS/3 ML VIAL SC PRN ×2 (10:27→16:11)
[2020-08-28] MEDS ORDERED: Fentanyl CADD 100 ML ONE (11:30)
[2020-08-28] MEDS: Lorazepam 2 MG/ML VIAL SLOW IVP PRN (11:49)
[2020-08-28] MEDS: Meropenem 2 GM, Admixture Fee 1 EACH in Sodium Chloride 0.9% 100 ML IVPB SCH ×2 (15:19→21:56)
[2020-08-28] MEDS: Insulin Glargine 30 UNITS in Pre-Filled Syringe 1 EACH SC SCH (21:37)
[2020-08-29] MEDS ORDERED: Fentanyl CADD 100 ML ONE ×2 (00:27→12:34)
[2020-08-29] MEDS: methylPREDNISolone Sod Succ 40 MG VIAL IVP SCH ×5 (00:37→23:10)
[2020-08-29] MEDS: Albuterol 200 PUFF (6.7GM INHALER) INH SCH ×6 (02:23→22:08)
[2020-08-29 04:13] LABS: Hemoglobin 11.7 g/dL (12.0-16.0); Mean Corpuscular HGB CONC 32.7 g/dL (32.0-36.0); Mean Corpuscular Volume 91.7 fL (78.0-98.0); Mean Platelet Volume 9.6 fL (7.4-10.4); Platelet Count 201 thou/uL (130-400); RBC Distribution Width 14.8 % (11.5-14.5); Red Blood Cell (RBC) Count 3.92 mill/uL (4.20-5.40); White Blood Cell (WBC) Count 14.1 thou/uL (4.8-10.8)
[2020-08-29 04:14] LABS: Band 17 % (5-11); Eosinophils 1 % (0-10); Lymphocytes 5 % (21-51); MDiff Complete? YES; Monocytes 2 % (0-10); Neutrophil 75 % (42-75); Platelet Morphology Comment Appears Adequate
[2020-08-29 04:26] LABS: Anion Gap 11 mmol/L (10-20); BUN (Urea Nitrogen) 48 mg/dL (9.8-20.1); Calc. Creatinine Clearance 114 mL/min (70-130); Calcium 8.3 mg/dL (7.8-10.44); Carbon Dioxide 29 mmol/L (22-29); Chloride 106 mmol/L (98-107); Glucose 89 mg/dL (70-105); Potassium 3.9 mmol/L (3.5-5.1); Sodium 142 mmol/L (136-145)
[2020-08-29] MEDS: Meropenem 2 GM, Admixture Fee 1 EACH in Sodium Chloride 0.9% 100 ML IVPB SCH ×3 (06:37→21:27)
[2020-08-29 07:22] LABS: Actual Bicarbonate (HCO3a) 27.8 mEq/L (22-28); Base Excess (BEa) 4.5 mEq/L (-2.0 to +3.0); CO2 Tension 36.6 mmHg (35.0-45.0); Calcium, Ionized (arterial) 1.19 mmol/L (1.12-1.30); Carboxyhemoglobin (COHb) 0.3 gm% (0.0-3.0); Hemoglobin (Hb) 10.3 g/dL (12.0-16.0); Potassium - ABG Lab 3.76 mmol/L (3.70-5.30)
[2020-08-29 07:24] LABS: Puncture Site RRA
[2020-08-29] MEDS: Furosemide 40 MG/4 ML VIAL SLOW IVP SCH (08:44)
[2020-08-29] MEDS: Insulin Glargine 40 UNITS in Pre-Filled Syringe 1 EACH SC SCH (08:44)
[2020-08-29] MEDS: Senokot S 8.6-50 MG TAB PER TUBE SCH ×2 (09:46→21:26)
[2020-08-29] MEDS: Ascorbic Acid 500 mg Chewable Tablet PO SCH (09:46)
[2020-08-29] MEDS: Polyethylene Glycol 3350 17 GM Packet PER TUBE SCH (09:46)
[2020-08-29] MEDS: Cholecalciferol (Vitamin D3) 400 UNITS TAB PO SCH (09:46)
[2020-08-29] MEDS: Zinc Sulfate 220 MG CAP PO SCH (09:46)
[2020-08-29] MEDS: Pantoprazole 40 MG GRANULES PACKET PER TUBE SCH ×2 (09:46→21:26)
[2020-08-29] MEDS: Insulin Glargine 30 UNITS in Pre-Filled Syringe 1 EACH SC SCH (21:26)
[2020-08-30] MEDS ORDERED: Fentanyl CADD 100 ML ONE ×2 (00:12→09:04)
[2020-08-30] MEDS: Albuterol 200 PUFF (6.7GM INHALER) INH SCH ×5 (02:19→22:22)
[2020-08-30 04:30] LABS: Hemoglobin 11.5 g/dL (12.0-16.0); Hypochromia SLIGHT = 6-15 cells (100X) (0-5/hpf); Lymphocytes 11 % (21-51); MDiff Complete? YES; Mean Corpuscular HGB CONC 32.5 g/dL (32.0-36.0); Mean Corpuscular Hemoglobin 29.7 pg (27.0-31.0); Mean Corpuscular Volume 91.3 fL (78.0-98.0); Mean Platelet Volume 9.6 fL (7.4-10.4); Neutrophil 88 % (42-75); Platelet Count 196 thou/uL (130-400); Platelet Morphology Comment Appears Adequate; Reactive Lymphocytes 1 % (0-10); Red Blood Cell (RBC) Count 3.87 mill/uL (4.20-5.40); White Blood Cell (WBC) Count 11.7 thou/uL (4.8-10.8)
[2020-08-30 04:34] LABS: Anion Gap 13 mmol/L (10-20); BUN (Urea Nitrogen) 49 mg/dL (9.8-20.1); Calc. Creatinine Clearance 105 mL/min (70-130); Calcium 8.2 mg/dL (7.8-10.44); Carbon Dioxide 25 mmol/L (22-29); Chloride 106 mmol/L (98-107); Glucose 210 mg/dL (70-105); Potassium 3.9 mmol/L (3.5-5.1); Sodium 140 mmol/L (136-145)
[2020-08-30] MEDS: Meropenem 2 GM, Admixture Fee 1 EACH in Sodium Chloride 0.9% 100 ML IVPB SCH ×3 (05:34→21:43)
[2020-08-30] MEDS: methylPREDNISolone Sod Succ 40 MG VIAL IVP SCH ×4 (05:34→23:46)
[2020-08-30] MEDS: Ascorbic Acid 500 mg Chewable Tablet PO SCH (08:24)
[2020-08-30] MEDS: Pantoprazole 40 MG GRANULES PACKET PER TUBE SCH ×2 (08:24→21:42)
[2020-08-30] MEDS: Cholecalciferol (Vitamin D3) 400 UNITS TAB PO SCH (08:24)
[2020-08-30] MEDS: Zinc Sulfate 220 MG CAP PO SCH (08:24)
[2020-08-30] MEDS: Furosemide 40 MG/4 ML VIAL SLOW IVP SCH (08:24)
[2020-08-30] MEDS: Polyethylene Glycol 3350 17 GM Packet PER TUBE SCH (08:26)
[2020-08-30] MEDS: Insulin Glargine 40 UNITS in Pre-Filled Syringe 1 EACH SC SCH (08:26)
[2020-08-30] MEDS: Senokot S 8.6-50 MG TAB PER TUBE SCH ×2 (08:26→21:41)
[2020-08-30] MEDS: Lorazepam 2 MG/ML VIAL SLOW IVP PRN ×3 (09:14→22:59)
[2020-08-30] MEDS ORDERED: diphenhydrAMINE 50 MG/ML VIAL ONE (09:18)
[2020-08-30] MEDS ORDERED: PROPOFOL 200 MG/20 ML VIAL ONE (09:18)
[2020-08-30] MEDS ORDERED: PHENYLEPHRINE-NS 100 MCG/ML 10 ML SYRINGE ONE (09:18)
[2020-08-30] MEDS ORDERED: Ondansetron PF 4 MG/2 ML Vial ONE (09:18)
[2020-08-30] MEDS: HumaLOG 300 UNITS/3 ML VIAL SC PRN (09:32)
[2020-08-30] MEDS ORDERED: Fentanyl 100 MCG/2 ML VIAL ONE (13:31)
[2020-08-30] MEDS: Insulin Glargine 30 UNITS in Pre-Filled Syringe 1 EACH SC SCH (21:40)
[2020-08-31] MEDS ORDERED: Fentanyl CADD 100 ML ONE ×2 (01:25→19:33)
[2020-08-31] MEDS: Albuterol 200 PUFF (6.7GM INHALER) INH SCH ×7 (02:19→22:39)
[2020-08-31] MEDS: Meropenem 2 GM, Admixture Fee 1 EACH in Sodium Chloride 0.9% 100 ML IVPB SCH ×3 (06:04→21:46)
[2020-08-31] MEDS: methylPREDNISolone Sod Succ 40 MG VIAL IVP SCH ×3 (06:04→18:00)
[2020-08-31 06:40] LABS: Band 7 % (5-11); Hemoglobin 12.7 g/dL (12.0-16.0); Lymphocytes 11 % (21-51); MDiff Complete? YES; Mean Corpuscular HGB CONC 32.6 g/dL (32.0-36.0); Mean Corpuscular Hemoglobin 29.9 pg (27.0-31.0); Mean Corpuscular Volume 91.6 fL (78.0-98.0); Monocytes 4 % (0-10); Neutrophil 78 % (42-75); Platelet Count 212 thou/uL (130-400); Platelet Morphology Comment Appears Adequate; RBC Distribution Width 15.2 % (11.5-14.5); Red Blood Cell (RBC) Count 4.24 mill/uL (4.20-5.40); White Blood Cell (WBC) Count 14.8 thou/uL (4.8-10.8)
[2020-08-31 06:54] LABS: Anion Gap 11 mmol/L (10-20); BUN (Urea Nitrogen) 46 mg/dL (9.8-20.1); Calc. Creatinine Clearance 0 mL/min (70-130); Calcium 8.4 mg/dL (7.8-10.44); Carbon Dioxide 27 mmol/L (22-29); Chloride 109 mmol/L (98-107); Glucose 98 mg/dL (70-105); Potassium 3.7 mmol/L (3.5-5.1); Sodium 143 mmol/L (136-145)
[2020-08-31] MEDS: Ascorbic Acid 500 mg Chewable Tablet PO SCH (08:33)
[2020-08-31] MEDS: Pantoprazole 40 MG GRANULES PACKET PER TUBE SCH ×2 (08:33→21:47)
[2020-08-31] MEDS: Senokot S 8.6-50 MG TAB PER TUBE SCH ×2 (08:34→21:50)
[2020-08-31] MEDS: Cholecalciferol (Vitamin D3) 400 UNITS TAB PO SCH (08:34)
[2020-08-31] MEDS: Polyethylene Glycol 3350 17 GM Packet PER TUBE SCH (08:34)
[2020-08-31] MEDS: Zinc Sulfate 220 MG CAP PO SCH (08:34)
[2020-08-31] MEDS: Insulin Glargine 40 UNITS in Pre-Filled Syringe 1 EACH SC SCH (08:34)
[2020-08-31] MEDS: Furosemide 40 MG/4 ML VIAL SLOW IVP SCH (08:35)
[2020-08-31] MEDS: Enoxaparin Sodium 40 MG/0.4 ML SYRINGE SC SCH ×2 (08:47→21:46)
[2020-08-31] MEDS: Lorazepam 2 MG/ML VIAL SLOW IVP PRN ×2 (15:29→19:59)
[2020-08-31] MEDS: Morphine 2 MG/ML VIAL SLOW IVP PRN (20:30)
[2020-08-31] MEDS: Insulin Glargine 30 UNITS in Pre-Filled Syringe 1 EACH SC SCH (21:47)
[2020-09-01] MEDS: Albuterol 200 PUFF (6.7GM INHALER) INH SCH ×2 (02:47→06:29)
[2020-09-01 04:20] LABS: Band 7 % (5-11); Hemoglobin 11.9 g/dL (12.0-16.0); Lymphocytes 4 % (21-51); MDiff Complete? YES; Mean Corpuscular HGB CONC 33.2 g/dL (32.0-36.0); Mean Corpuscular Hemoglobin 30.2 pg (27.0-31.0); Mean Corpuscular Volume 91.1 fL (78.0-98.0); Mean Platelet Volume 9.3 fL (7.4-10.4); Neutrophil 89 % (42-75); Platelet Count 202 thou/uL (130-400); RBC Distribution Width 15.4 % (11.5-14.5); Red Blood Cell (RBC) Count 3.92 mill/uL (4.20-5.40); White Blood Cell (WBC) Count 11.9 thou/uL (4.8-10.8)
[2020-09-01 04:44] LABS: Anion Gap 13 mmol/L (10-20); BUN (Urea Nitrogen) 60 mg/dL (9.8-20.1); Calc. Creatinine Clearance 0 mL/min (70-130); Carbon Dioxide 26 mmol/L (22-29); Chloride 111 mmol/L (98-107); Glucose 240 mg/dL (70-105); Potassium 3.7 mmol/L (3.5-5.1); Sodium 146 mmol/L (136-145)
[2020-09-01] MEDS: methylPREDNISolone Sod Succ 40 MG VIAL IVP SCH ×5 (05:50→23:53)
[2020-09-01] MEDS: Meropenem 2 GM, Admixture Fee 1 EACH in Sodium Chloride 0.9% 100 ML IVPB SCH ×3 (05:50→22:08)
[2020-09-01] MEDS: HumaLOG 300 UNITS/3 ML VIAL SC PRN ×3 (06:33→22:37)
[2020-09-01] MEDS: Sodium Chloride 0.45% 1,000 ML IV SCH (07:48)
[2020-09-01] MEDS: Zinc Sulfate 220 MG CAP PO SCH (09:21)
[2020-09-01] MEDS: Cholecalciferol (Vitamin D3) 400 UNITS TAB PO SCH (09:21)
[2020-09-01] MEDS: Polyethylene Glycol 3350 17 GM Packet PER TUBE SCH (09:21)
[2020-09-01] MEDS: Enoxaparin Sodium 40 MG/0.4 ML SYRINGE SC SCH ×2 (09:21→22:08)
[2020-09-01] MEDS: Senokot S 8.6-50 MG TAB PER TUBE SCH ×2 (09:21→20:18)
[2020-09-01] MEDS: Pantoprazole 40 MG GRANULES PACKET PER TUBE SCH ×2 (09:21→22:08)
[2020-09-01] MEDS: Insulin Glargine 40 UNITS in Pre-Filled Syringe 1 EACH SC SCH (09:21)
[2020-09-01] MEDS: Ascorbic Acid 500 mg Chewable Tablet PO SCH (09:21)
[2020-09-01] MEDS: Morphine 2 MG/ML VIAL SLOW IVP PRN ×3 (09:49→20:10)
[2020-09-01] MEDS ORDERED: Fentanyl CADD 0 ML ONE (09:54)
[2020-09-01] MEDS: Albuterol Sulfate 2.5 mg/3 ml Neb NEB SCH ×3 (10:18→18:58)
[2020-09-01] MEDS ORDERED: Fentanyl CADD 100 ML ONE (13:37)
[2020-09-01] MEDS: Vecuronium 10 MG VIAL IV PRN (20:13)
[2020-09-01] MEDS: Insulin Glargine 30 UNITS in Pre-Filled Syringe 1 EACH SC SCH (22:14)
[2020-09-02] MEDS: Albuterol Sulfate 2.5 mg/3 ml Neb NEB SCH ×4 (01:17→18:15)
[2020-09-02 04:18] LABS: Anion Gap 11 mmol/L (10-20); BUN (Urea Nitrogen) 42 mg/dL (9.8-20.1); Calc. Creatinine Clearance 110 mL/min (70-130); Carbon Dioxide 25 mmol/L (22-29); Chloride 111 mmol/L (98-107); Glucose 96 mg/dL (70-105); Potassium 3.5 mmol/L (3.5-5.1); Sodium 143 mmol/L (136-145)
[2020-09-02 04:51] LABS: Band 6 % (5-11); Lymphocytes 3 % (21-51); MDiff Complete? YES; Mean Corpuscular Hemoglobin 30.5 pg (27.0-31.0); Mean Corpuscular Volume 92.6 fL (78.0-98.0); Mean Platelet Volume 9.2 fL (7.4-10.4); Monocytes 7 % (0-10); Neutrophil 84 % (42-75); Platelet Count 188 thou/uL (130-400); RBC Distribution Width 15.2 % (11.5-14.5); Red Blood Cell (RBC) Count 3.92 mill/uL (4.20-5.40); White Blood Cell (WBC) Count 14.2 thou/uL (4.8-10.8)
[2020-09-02] MEDS: Meropenem 2 GM, Admixture Fee 1 EACH in Sodium Chloride 0.9% 100 ML IVPB SCH ×3 (06:45→22:35)
[2020-09-02] MEDS: methylPREDNISolone Sod Succ 40 MG VIAL IVP SCH ×4 (07:03→23:30)
[2020-09-02] MEDS ORDERED: Fentanyl CADD 100 ML ONE (07:42)
[2020-09-02] MEDS: Enoxaparin Sodium 40 MG/0.4 ML SYRINGE SC SCH ×2 (07:46→21:02)
[2020-09-02] MEDS: Insulin Glargine 40 UNITS in Pre-Filled Syringe 1 EACH SC SCH (07:46)
[2020-09-02] MEDS: Sodium Chloride 0.45% 1,000 ML IV SCH ×3 (07:46→22:35)
[2020-09-02] MEDS: Zinc Sulfate 220 MG CAP PO SCH (07:48)
[2020-09-02] MEDS: Pantoprazole 40 MG GRANULES PACKET PER TUBE SCH ×2 (07:48→21:02)
[2020-09-02] MEDS: Cholecalciferol (Vitamin D3) 400 UNITS TAB PO SCH (07:48)
[2020-09-02] MEDS: Polyethylene Glycol 3350 17 GM Packet PER TUBE SCH (07:48)
[2020-09-02] MEDS: Senokot S 8.6-50 MG TAB PER TUBE SCH (07:48)
[2020-09-02] MEDS: Ascorbic Acid 500 mg Chewable Tablet PO SCH (07:48)
[2020-09-02] MEDS: Morphine 2 MG/ML VIAL SLOW IVP PRN ×2 (19:53→23:28)
[2020-09-02] MEDS: Fentanyl CADD 100 ML IV SCH (19:57)
[2020-09-02] MEDS: Insulin Glargine 30 UNITS in Pre-Filled Syringe 1 EACH SC SCH (21:09)
[2020-09-02] MEDS: Vecuronium 10 MG VIAL IV PRN (23:30)
[2020-09-03] MEDS: Albuterol Sulfate 2.5 mg/3 ml Neb NEB SCH ×5 (00:37→23:44)
[2020-09-03 04:19] LABS: Anion Gap 9 mmol/L (10-20); BUN (Urea Nitrogen) 32 mg/dL (9.8-20.1); Calc. Creatinine Clearance 0 mL/min (70-130); Calcium 7.4 mg/dL (7.8-10.44); Carbon Dioxide 24 mmol/L (22-29); Chloride 113 mmol/L (98-107); Glucose 213 mg/dL (70-105); Sodium 142 mmol/L (136-145)
[2020-09-03 04:54] LABS: Band 11 % (5-11); Eosinophils 1 % (0-10); Hemoglobin 10.9 g/dL (12.0-16.0); Lymphocytes 5 % (21-51); MDiff Complete? YES; Mean Corpuscular HGB CONC 32.5 g/dL (32.0-36.0); Mean Corpuscular Hemoglobin 30.3 pg (27.0-31.0); Monocytes 2 % (0-10); Neutrophil 81 % (42-75); Platelet Count 165 thou/uL (130-400); RBC Distribution Width 15.2 % (11.5-14.5); Red Blood Cell (RBC) Count 3.59 mill/uL (4.20-5.40); White Blood Cell (WBC) Count 10.7 thou/uL (4.8-10.8)
[2020-09-03] MEDS: Meropenem 2 GM, Admixture Fee 1 EACH in Sodium Chloride 0.9% 100 ML IVPB SCH ×3 (05:05→22:25)
[2020-09-03] MEDS: methylPREDNISolone Sod Succ 40 MG VIAL IVP SCH ×3 (05:05→16:54)
[2020-09-03] MEDS: HumaLOG 300 UNITS/3 ML VIAL SC PRN ×3 (07:29→15:59)
[2020-09-03] MEDS ORDERED: Fentanyl CADD 100 ML ONE ×2 (07:30→17:41)
[2020-09-03] MEDS ORDERED: Furosemide 40 MG/4 ML VIAL SLOW IVP SCH (09:00)
[2020-09-03] MEDS: Insulin Glargine 40 UNITS in Pre-Filled Syringe 1 EACH SC SCH (09:46)
[2020-09-03] MEDS: Enoxaparin Sodium 40 MG/0.4 ML SYRINGE SC SCH (09:46)
[2020-09-03] MEDS: Zinc Sulfate 220 MG CAP PO SCH (09:47)
[2020-09-03] MEDS: Pantoprazole 40 MG GRANULES PACKET PER TUBE SCH ×2 (09:47→20:49)
[2020-09-03] MEDS: Cholecalciferol (Vitamin D3) 400 UNITS TAB PO SCH (09:47)
[2020-09-03] MEDS: Polyethylene Glycol 3350 17 GM Packet PER TUBE SCH (09:47)
[2020-09-03] MEDS: Ascorbic Acid 500 mg Chewable Tablet PO SCH ×2 (09:47→16:52)
[2020-09-03] MEDS: Acetaminophen 325 MG TAB PO PRN ×2 (11:43→20:49)
[2020-09-03] MEDS: Sodium Chloride 0.45% 1,000 ML IV SCH (12:40)
[2020-09-03] MEDS ORDERED: Aspirin 325 mg Enteric Coated Tablet PO SCH (14:15)
[2020-09-03] MEDS: fentaNYL 100 mcg/hour Patch TD SCH (14:37)
[2020-09-03] MEDS: Insulin Glargine 35 UNITS in Pre-Filled Syringe 1 EACH SC SCH (20:49)
[2020-09-04] MEDS: Ascorbic Acid 500 mg Chewable Tablet PO SCH ×4 (00:20→17:32)
[2020-09-04] MEDS: methylPREDNISolone Sod Succ 40 MG VIAL IVP SCH ×4 (00:20→17:31)
[2020-09-04] MEDS: Sodium Chloride 0.45% 1,000 ML IV SCH ×2 (01:23→14:21)
[2020-09-04] MEDS: Morphine 2 MG/ML VIAL SLOW IVP PRN (03:36)
[2020-09-04] MEDS: HumaLOG 300 UNITS/3 ML VIAL SC PRN ×4 (03:46→21:04)
[2020-09-04 04:09] LABS: Band 4 % (5-11); Hemoglobin 11.9 g/dL (12.0-16.0); Lymphocytes 3 % (21-51); MDiff Complete? YES; Mean Corpuscular HGB CONC 32.5 g/dL (32.0-36.0); Mean Corpuscular Hemoglobin 30.1 pg (27.0-31.0); Mean Corpuscular Volume 92.7 fL (78.0-98.0); Mean Platelet Volume 9.3 fL (7.4-10.4); Monocytes 5 % (0-10); Neutrophil 87 % (42-75); Platelet Count 159 thou/uL (130-400); RBC Distribution Width 15.4 % (11.5-14.5); Reactive Lymphocytes 1 % (0-10); Red Blood Cell (RBC) Count 3.96 mill/uL (4.20-5.40); White Blood Cell (WBC) Count 12.6 thou/uL (4.8-10.8)
[2020-09-04 04:12] LABS: Anion Gap 11 mmol/L (10-20); BUN (Urea Nitrogen) 30 mg/dL (9.8-20.1); Calc. Creatinine Clearance 110 mL/min (70-130); Calcium 7.7 mg/dL (7.8-10.44); Carbon Dioxide 26 mmol/L (22-29); Chloride 109 mmol/L (98-107); Glucose 227 mg/dL (70-105); Potassium 3.5 mmol/L (3.5-5.1); Sodium 142 mmol/L (136-145)
[2020-09-04] MEDS: Meropenem 2 GM, Admixture Fee 1 EACH in Sodium Chloride 0.9% 100 ML IVPB SCH ×3 (05:17→21:04)
[2020-09-04] MEDS ORDERED: Fentanyl CADD 100 ML ONE ×2 (05:22→20:24)
[2020-09-04] MEDS: Albuterol Sulfate 2.5 mg/3 ml Neb NEB SCH ×4 (06:50→23:47)
[2020-09-04 07:12] LABS: Actual Bicarbonate (HCO3a) 27.6 mEq/L (22-28); CO2 Tension 41.7 mmHg (35.0-45.0); Calcium, Ionized (arterial) 1.17 mmol/L (1.12-1.30); Carboxyhemoglobin (COHb) 0.7 gm% (0.0-3.0); Hemoglobin (Hb) 18.1 g/dL (12.0-16.0); O2 Tension (PaO2), arterial 72.9 mmHg (80.0-100.0); Potassium - ABG Lab 3.72 mmol/L (3.70-5.30); pH, Arterial 7.44 (7.35-7.45)
[2020-09-04 07:14] LABS: ALV-art Gradient 302.775 mmHg (0-20); Puncture Site RRA
[2020-09-04] MEDS ORDERED: Aspirin 325 mg Enteric Coated Tablet PO SCH (09:00)
[2020-09-04] MEDS: Enoxaparin Sodium 60 MG/0.6 ML SYRINGE SC SCH (09:23)
[2020-09-04] MEDS: Cholecalciferol (Vitamin D3) 400 UNITS TAB PO SCH (09:24)
[2020-09-04] MEDS: Zinc Sulfate 220 MG CAP PO SCH (09:24)
[2020-09-04] MEDS: Pantoprazole 40 MG GRANULES PACKET PER TUBE SCH ×2 (09:24→21:04)
[2020-09-04] MEDS: Thiamine 100 MG TAB PO SCH (09:54)
[2020-09-04] MEDS: Polyethylene Glycol 3350 17 GM Packet PER TUBE SCH (09:55)
[2020-09-04] MEDS: Insulin Glargine 40 UNITS in Pre-Filled Syringe 1 EACH SC SCH (09:55)
[2020-09-04] MEDS ORDERED: Aspirin 325 MG TAB PER TUBE SCH (10:00)
[2020-09-04] MEDS: Insulin Glargine 35 UNITS in Pre-Filled Syringe 1 EACH SC SCH (21:03)
[2020-09-05] MEDS: Ascorbic Acid 500 mg Chewable Tablet PO SCH ×5 (00:11→23:05)
[2020-09-05] MEDS: methylPREDNISolone Sod Succ 40 MG VIAL IVP SCH ×5 (00:11→23:04)
[2020-09-05] MEDS: Sodium Chloride 0.45% 1,000 ML IV SCH (03:04)
[2020-09-05 04:10] LABS: Anion Gap 8 mmol/L (10-20); BUN (Urea Nitrogen) 31 mg/dL (9.8-20.1); Calc. Creatinine Clearance 119 mL/min (70-130); Carbon Dioxide 29 mmol/L (22-29); Chloride 109 mmol/L (98-107); Glucose 166 mg/dL (70-105); Potassium 3.9 mmol/L (3.5-5.1); Sodium 142 mmol/L (136-145)
[2020-09-05] MEDS: Meropenem 2 GM, Admixture Fee 1 EACH in Sodium Chloride 0.9% 100 ML IVPB SCH (05:00)
[2020-09-05] MEDS: HumaLOG 300 UNITS/3 ML VIAL SC PRN ×4 (05:19→22:18)
[2020-09-05 05:30] LABS: Band 4 % (5-11); Lymphocytes 14 % (21-51); MDiff Complete? YES; Mean Corpuscular Hemoglobin 29.5 pg (27.0-31.0); Mean Corpuscular Volume 92.3 fL (78.0-98.0); Mean Platelet Volume 9.4 fL (7.4-10.4); Monocytes 3 % (0-10); Neutrophil 79 % (42-75); Platelet Count 183 thou/uL (130-400); RBC Distribution Width 15.9 % (11.5-14.5); Red Blood Cell (RBC) Count 4.07 mill/uL (4.20-5.40); White Blood Cell (WBC) Count 11.8 thou/uL (4.8-10.8)
[2020-09-05] MEDS: Albuterol Sulfate 2.5 mg/3 ml Neb NEB SCH ×4 (06:43→23:05)
[2020-09-05 06:52] LABS: Actual Bicarbonate (HCO3a) 28.1 mEq/L (22-28); Base Excess (BEa) 4.6 mEq/L (-2.0 to +3.0); CO2 Tension 37.4 mmHg (35.0-45.0); Calcium, Ionized (arterial) 1.14 mmol/L (1.12-1.30); Hemoglobin (Hb) 12.1 g/dL (12.0-16.0); pH, Arterial 7.49 (7.35-7.45)
[2020-09-05 06:54] LABS: O2 Tension (PaO2), arterial 55.5 mmHg (80.0-100.0); Puncture Site RRA
[2020-09-05] MEDS: Enoxaparin Sodium 60 MG/0.6 ML SYRINGE SC SCH (08:29)
[2020-09-05] MEDS: Zinc Sulfate 220 MG CAP PO SCH (08:30)
[2020-09-05] MEDS: Thiamine 100 MG TAB PO SCH (08:30)
[2020-09-05] MEDS: Aspirin 325 MG TAB PER TUBE SCH (08:30)
[2020-09-05] MEDS: Pantoprazole 40 MG GRANULES PACKET PER TUBE SCH ×2 (08:30→20:03)
[2020-09-05] MEDS: Cholecalciferol (Vitamin D3) 400 UNITS TAB PO SCH (08:30)
[2020-09-05] MEDS: Polyethylene Glycol 3350 17 GM Packet PER TUBE SCH (08:30)
[2020-09-05] MEDS: Insulin Glargine 40 UNITS in Pre-Filled Syringe 1 EACH SC SCH (09:16)
[2020-09-05] MEDS: Morphine 2 MG/ML VIAL SLOW IVP PRN (15:02)
[2020-09-05] MEDS ORDERED: Fentanyl CADD 100 ML ONE (15:49)
[2020-09-05] MEDS: Insulin Glargine 35 UNITS in Pre-Filled Syringe 1 EACH SC SCH (21:00)
[2020-09-06] MEDS: Morphine 2 MG/ML VIAL SLOW IVP PRN ×4 (04:05→22:11)
[2020-09-06 04:10] LABS: Anion Gap 10 mmol/L (10-20); BUN (Urea Nitrogen) 31 mg/dL (9.8-20.1); Calc. Creatinine Clearance 117 mL/min (70-130); Calcium 7.7 mg/dL (7.8-10.44); Carbon Dioxide 27 mmol/L (22-29); Chloride 110 mmol/L (98-107); Glucose 133 mg/dL (70-105); Potassium 4.1 mmol/L (3.5-5.1); Sodium 143 mmol/L (136-145)
[2020-09-06 04:37] LABS: Band 9 % (5-11); Hemoglobin 11.5 g/dL (12.0-16.0); Lymphocytes 8 % (21-51); MDiff Complete? YES; Mean Corpuscular HGB CONC 32.6 g/dL (32.0-36.0); Mean Corpuscular Hemoglobin 30.3 pg (27.0-31.0); Mean Corpuscular Volume 92.9 fL (78.0-98.0); Mean Platelet Volume 9.1 fL (7.4-10.4); Monocytes 2 % (0-10); Neutrophil 81 % (42-75); Platelet Count 174 thou/uL (130-400); RBC Distribution Width 16.1 % (11.5-14.5); Red Blood Cell (RBC) Count 3.81 mill/uL (4.20-5.40); White Blood Cell (WBC) Count 9.8 thou/uL (4.8-10.8)
[2020-09-06] MEDS: Ascorbic Acid 500 mg Chewable Tablet PO SCH ×4 (05:06→23:56)
[2020-09-06] MEDS: methylPREDNISolone Sod Succ 40 MG VIAL IVP SCH ×4 (05:06→23:57)
[2020-09-06] MEDS: Albuterol Sulfate 2.5 mg/3 ml Neb NEB SCH ×4 (06:53→23:11)
[2020-09-06] MEDS: Enoxaparin Sodium 60 MG/0.6 ML SYRINGE SC SCH (08:50)
[2020-09-06] MEDS: Zinc Sulfate 220 MG CAP PO SCH (08:51)
[2020-09-06] MEDS: Cholecalciferol (Vitamin D3) 400 UNITS TAB PO SCH (08:51)
[2020-09-06] MEDS: Pantoprazole 40 MG GRANULES PACKET PER TUBE SCH ×2 (08:51→20:35)
[2020-09-06] MEDS: Thiamine 100 MG TAB PO SCH (08:51)
[2020-09-06] MEDS: Aspirin 325 MG TAB PER TUBE SCH (08:51)
[2020-09-06] MEDS: Polyethylene Glycol 3350 17 GM Packet PER TUBE SCH (08:53)
[2020-09-06] MEDS ORDERED: Fentanyl CADD 100 ML ONE ×2 (09:23→22:24)
[2020-09-06] MEDS: Fentanyl CADD 100 ML IV SCH ×2 (09:28→22:40)
[2020-09-06] MEDS: Insulin Glargine 40 UNITS in Pre-Filled Syringe 1 EACH SC SCH (09:54)
[2020-09-06] MEDS: Carvedilol 3.125 MG TAB PER TUBE SCH (16:21)
[2020-09-06] MEDS: fentaNYL 100 mcg/hour Patch TD SCH (16:21)
[2020-09-06] MEDS: HumaLOG 300 UNITS/3 ML VIAL SC PRN (16:30)
[2020-09-06] MEDS: Senokot S 8.6-50 MG TAB PER TUBE SCH (20:35)
[2020-09-06] MEDS: Lantus 1000 UNITS/10 ML VIAL SC SCH (22:00)
[2020-09-07 04:23] LABS: Hemoglobin 11.1 g/dL (12.0-16.0); Mean Corpuscular HGB CONC 32.2 g/dL (32.0-36.0); Mean Corpuscular Hemoglobin 30.2 pg (27.0-31.0); Mean Corpuscular Volume 93.9 fL (78.0-98.0); Mean Platelet Volume 9.1 fL (7.4-10.4); Platelet Count 162 thou/uL (130-400); RBC Distribution Width 16.4 % (11.5-14.5); Red Blood Cell (RBC) Count 3.66 mill/uL (4.20-5.40); White Blood Cell (WBC) Count 9.4 thou/uL (4.8-10.8)
[2020-09-07 04:34] LABS: Anion Gap 8 mmol/L (10-20); BUN (Urea Nitrogen) 31 mg/dL (9.8-20.1); Calc. Creatinine Clearance 135 mL/min (70-130); Calcium 7.6 mg/dL (7.8-10.44); Carbon Dioxide 27 mmol/L (22-29); Chloride 108 mmol/L (98-107); Glucose 180 mg/dL (70-105); Potassium 4.1 mmol/L (3.5-5.1); Sodium 139 mmol/L (136-145)
[2020-09-07] MEDS: Ascorbic Acid 500 mg Chewable Tablet PO SCH ×2 (05:03→10:20)
[2020-09-07] MEDS: methylPREDNISolone Sod Succ 40 MG VIAL IVP SCH ×3 (05:04→18:11)
[2020-09-07 05:06] LABS: Band 14 % (5-11); Eosinophils 1 % (0-10); Lymphocytes 10 % (21-51); MDiff Complete? YES; Monocytes 4 % (0-10); Neutrophil 71 % (42-75)
[2020-09-07] MEDS: HumaLOG 300 UNITS/3 ML VIAL SC PRN ×2 (05:27→18:10)
[2020-09-07] MEDS: Albuterol Sulfate 2.5 mg/3 ml Neb NEB SCH ×3 (07:08→19:09)
[2020-09-07 09:35] VITALS: BMI 22.6
[2020-09-07] MEDS: Enoxaparin Sodium 60 MG/0.6 ML SYRINGE SC SCH (09:51)
[2020-09-07] MEDS: Pantoprazole 40 MG GRANULES PACKET PER TUBE SCH ×2 (09:51→20:44)
[2020-09-07] MEDS: Zinc Sulfate 220 MG CAP PO SCH (09:52)
[2020-09-07] MEDS: Senokot S 8.6-50 MG TAB PER TUBE SCH ×2 (09:52→20:44)
[2020-09-07] MEDS: Cholecalciferol (Vitamin D3) 400 UNITS TAB PO SCH (09:52)
[2020-09-07] MEDS: Thiamine 100 MG TAB PO SCH (09:52)
[2020-09-07] MEDS: Aspirin 325 MG TAB PER TUBE SCH (09:52)
[2020-09-07] MEDS: Carvedilol 3.125 MG TAB PER TUBE SCH ×2 (09:52→18:18)
[2020-09-07] MEDS: Polyethylene Glycol 3350 17 GM Packet PER TUBE SCH (09:53)
[2020-09-07] MEDS: Lantus 1000 UNITS/10 ML VIAL SC SCH ×2 (10:20→20:45)
[2020-09-07] MEDS ORDERED: Fentanyl CADD 100 ML ONE (13:06)
[2020-09-07] MEDS: Fentanyl CADD 100 ML IV SCH (13:35)
[2020-09-08] MEDS: methylPREDNISolone Sod Succ 40 MG VIAL IVP SCH ×5 (00:35→23:19)
[2020-09-08] MEDS: Albuterol Sulfate 2.5 mg/3 ml Neb NEB SCH ×4 (00:35→18:40)
[2020-09-08] MEDS ORDERED: Fentanyl CADD 100 ML ONE ×2 (03:57→17:21)
[2020-09-08] MEDS: Fentanyl CADD 100 ML IV SCH ×2 (04:00→17:38)
[2020-09-08] MEDS: HumaLOG 300 UNITS/3 ML VIAL SC PRN ×2 (04:42→21:25)
[2020-09-08] MEDS: Carvedilol 3.125 MG TAB PER TUBE SCH ×2 (07:38→17:36)
[2020-09-08] MEDS: Cholecalciferol (Vitamin D3) 400 UNITS TAB PO SCH (07:38)
[2020-09-08] MEDS: Senokot S 8.6-50 MG TAB PER TUBE SCH ×2 (07:39→20:46)
[2020-09-08] MEDS: Zinc Sulfate 220 MG CAP PO SCH (07:43)
[2020-09-08] MEDS: Ascorbic Acid 500 mg Chewable Tablet PO SCH (07:44)
[2020-09-08] MEDS: Thiamine 100 MG TAB PO SCH (07:44)
[2020-09-08] MEDS: Polyethylene Glycol 3350 17 GM Packet PER TUBE SCH (07:45)
[2020-09-08] MEDS: Enoxaparin Sodium 60 MG/0.6 ML SYRINGE SC SCH (07:45)
[2020-09-08] MEDS: Aspirin 325 MG TAB PER TUBE SCH (07:46)
[2020-09-08] MEDS: cloNIDine 0.1 MG TAB PER TUBE SCH ×3 (07:57→20:46)
[2020-09-08] MEDS ORDERED: Lorazepam 1 MG TAB PO SCH (08:00)
[2020-09-08] MEDS: Pantoprazole 40 MG GRANULES PACKET PER TUBE SCH ×2 (08:14→20:46)
[2020-09-08] MEDS: Lantus 1000 UNITS/10 ML VIAL SC SCH ×2 (08:16→20:46)
[2020-09-08 08:35] LABS: Hemoglobin 13.6 g/dL (12.0-16.0); Mean Corpuscular HGB CONC 32.5 g/dL (32.0-36.0); Mean Corpuscular Hemoglobin 30.2 pg (27.0-31.0); Mean Corpuscular Volume 93.1 fL (78.0-98.0); Mean Platelet Volume 9.4 fL (7.4-10.4); Platelet Count 180 thou/uL (130-400); RBC Distribution Width 16.4 % (11.5-14.5); Red Blood Cell (RBC) Count 4.49 mill/uL (4.20-5.40); White Blood Cell (WBC) Count 9.4 thou/uL (4.8-10.8)
[2020-09-08 08:53] LABS: Anion Gap 7 mmol/L (10-20); BUN (Urea Nitrogen) 27 mg/dL (9.8-20.1); Calc. Creatinine Clearance 130 mL/min (70-130); Calcium 7.8 mg/dL (7.8-10.44); Carbon Dioxide 28 mmol/L (22-29); Chloride 104 mmol/L (98-107); Glucose 205 mg/dL (70-105); Potassium 4.2 mmol/L (3.5-5.1); Sodium 135 mmol/L (136-145)
[2020-09-08 09:44] LABS: Band 13 % (5-11); Eosinophils 1 % (0-10); Lymphocytes 5 % (21-51); MDiff Complete? YES; Monocytes 5 % (0-10); Neutrophil 74 % (42-75); Platelet Morphology Comment Appears Adequate; Polychromasia SLIGHT = 2-3 cells (100X) (0-2/hpf); Reactive Lymphocytes 2 % (0-10)
[2020-09-08] MEDS: Lorazepam 1 MG TAB PO SCH ×2 (12:57→17:36)
[2020-09-09] MEDS: Lorazepam 1 MG TAB PO SCH ×5 (00:51→23:29)
[2020-09-09] MEDS: Albuterol Sulfate 2.5 mg/3 ml Neb NEB SCH ×4 (01:54→18:47)
[2020-09-09] MEDS: methylPREDNISolone Sod Succ 40 MG VIAL IVP SCH ×4 (05:16→23:27)
[2020-09-09 05:36] LABS: Hemoglobin 13.3 g/dL (12.0-16.0); Lymphocytes 14 % (21-51); MDiff Complete? YES; Mean Corpuscular HGB CONC 31.9 g/dL (32.0-36.0); Mean Corpuscular Hemoglobin 29.2 pg (27.0-31.0); Mean Corpuscular Volume 91.7 fL (78.0-98.0); Mean Platelet Volume 9.3 fL (7.4-10.4); Monocytes 4 % (0-10); Neutrophil 82 % (42-75); Platelet Count 192 thou/uL (130-400); Platelet Morphology Comment Appears Adequate; RBC Distribution Width 16.8 % (11.5-14.5); Red Blood Cell (RBC) Count 4.55 mill/uL (4.20-5.40); White Blood Cell (WBC) Count 8.8 thou/uL (4.8-10.8)
[2020-09-09 05:46] LABS: Anion Gap 10 mmol/L (10-20); BUN (Urea Nitrogen) 22 mg/dL (9.8-20.1); Calc. Creatinine Clearance 140 mL/min (70-130); Calcium 7.6 mg/dL (7.8-10.44); Carbon Dioxide 24 mmol/L (22-29); Chloride 103 mmol/L (98-107); Glucose 116 mg/dL (70-105); Potassium 3.9 mmol/L (3.5-5.1); Sodium 133 mmol/L (136-145)
[2020-09-09] MEDS: Enoxaparin Sodium 60 MG/0.6 ML SYRINGE SC SCH (08:29)
[2020-09-09] MEDS: Polyethylene Glycol 3350 17 GM Packet PER TUBE SCH (08:30)
[2020-09-09] MEDS: Aspirin 325 MG TAB PER TUBE SCH (08:30)
[2020-09-09] MEDS: Cholecalciferol (Vitamin D3) 400 UNITS TAB PO SCH (08:30)
[2020-09-09] MEDS: Ascorbic Acid 500 mg Chewable Tablet PO SCH (08:30)
[2020-09-09] MEDS: Thiamine 100 MG TAB PO SCH (08:30)
[2020-09-09] MEDS: Senokot S 8.6-50 MG TAB PER TUBE SCH ×2 (08:30→21:01)
[2020-09-09] MEDS: Pantoprazole 40 MG GRANULES PACKET PER TUBE SCH ×2 (08:30→21:01)
[2020-09-09] MEDS: Zinc Sulfate 220 MG CAP PO SCH (08:30)
[2020-09-09] MEDS: Lantus 1000 UNITS/10 ML VIAL SC SCH ×2 (08:31→21:00)
[2020-09-09] MEDS: cloNIDine 0.1 MG TAB PER TUBE SCH ×3 (08:38→21:01)
[2020-09-09] MEDS: Carvedilol 3.125 MG TAB PER TUBE SCH ×2 (08:42→16:34)
[2020-09-09] MEDS ORDERED: Fentanyl CADD 100 ML ONE (13:22)
[2020-09-09] MEDS: fentaNYL 100 mcg/hour Patch TD SCH (14:59)
[2020-09-09] MEDS: Dextrose 50% Abboject 50 ML SYRINGE SLOW IVP PRN ×2 (15:54→22:15)
[2020-09-10] MEDS: Lorazepam 1 MG TAB PO SCH ×4 (00:16→17:26)
[2020-09-10] MEDS: Albuterol Sulfate 2.5 mg/3 ml Neb NEB SCH ×4 (00:22→18:56)
[2020-09-10 04:18] LABS: Band 20 % (5-11); Lymphocytes 9 % (21-51); MDiff Complete? YES; Mean Corpuscular HGB CONC 34.5 g/dL (32.0-36.0); Mean Corpuscular Hemoglobin 32.2 pg (27.0-31.0); Mean Corpuscular Volume 93.3 fL (78.0-98.0); Mean Platelet Volume 9.6 fL (7.4-10.4); Monocytes 5 % (0-10); Neutrophil 66 % (42-75); Platelet Count 171 thou/uL (130-400); Platelet Morphology Comment Appears Adequate; RBC Morphology Normal; Red Blood Cell (RBC) Count 4.05 mill/uL (4.20-5.40); White Blood Cell (WBC) Count 5.9 thou/uL (4.8-10.8)
[2020-09-10 04:31] LABS: Anion Gap 12 mmol/L (10-20); BUN (Urea Nitrogen) 20 mg/dL (9.8-20.1); Calc. Creatinine Clearance 147 mL/min (70-130); Calcium 7.4 mg/dL (7.8-10.44); Carbon Dioxide 22 mmol/L (22-29); Chloride 103 mmol/L (98-107); Glucose 161 mg/dL (70-105); Potassium 4.4 mmol/L (3.5-5.1); Sodium 133 mmol/L (136-145)
[2020-09-10] MEDS ORDERED: Fentanyl CADD 100 ML ONE (04:34)
[2020-09-10] MEDS: methylPREDNISolone Sod Succ 40 MG VIAL IVP SCH ×3 (05:16→17:26)
[2020-09-10] MEDS: Carvedilol 3.125 MG TAB PER TUBE SCH ×2 (07:58→16:55)
[2020-09-10] MEDS: Enoxaparin Sodium 60 MG/0.6 ML SYRINGE SC SCH (08:41)
[2020-09-10] MEDS: Polyethylene Glycol 3350 17 GM Packet PER TUBE SCH (08:41)
[2020-09-10] MEDS: Pantoprazole 40 MG GRANULES PACKET PER TUBE SCH ×2 (08:41→20:56)
[2020-09-10] MEDS: Cholecalciferol (Vitamin D3) 400 UNITS TAB PO SCH (08:42)
[2020-09-10] MEDS: Aspirin 325 MG TAB PER TUBE SCH (08:43)
[2020-09-10] MEDS: Ascorbic Acid 500 mg Chewable Tablet PO SCH (08:43)
[2020-09-10] MEDS: Senokot S 8.6-50 MG TAB PER TUBE SCH ×2 (08:43→20:56)
[2020-09-10] MEDS: Zinc Sulfate 220 MG CAP PO SCH (08:43)
[2020-09-10] MEDS: Thiamine 100 MG TAB PO SCH (08:43)
[2020-09-10] MEDS: cloNIDine 0.1 MG TAB PER TUBE SCH ×4 (08:44→20:55)
[2020-09-10] MEDS: Lantus 1000 UNITS/10 ML VIAL SC SCH ×2 (08:44→20:56)
[2020-09-10] MEDS ORDERED: Dextrose 50% Abboject 50 ML SYRINGE ONE (15:29)
[2020-09-10 16:19] VITALS: BP 174/89
[2020-09-10] MEDS: Vecuronium 10 MG VIAL IV PRN (16:31)
[2020-09-10] MEDS: Dextrose 50% Abboject 50 ML SYRINGE SLOW IVP PRN (16:55)
[2020-09-10 20:34] VITALS: TEMP 98.5
[2020-09-10] MEDS ORDERED: Lorazepam 2 MG/ML VIAL SLOW IVP PRN (22:05)
[2020-09-10] MEDS ORDERED: Morphine 4 MG/ML VIAL SLOW IVP PRN (22:06)
== END 2020-09-10 22:35 | disposition expired | DRG 4 ==
LOC: ERS 02:18 → ERHOLD 04:19 → T4-A 21:08 → IMCU/EMU 08-16 09:10 → CCU 08-18 08:54
PROVIDERS: ADMIT Student in an Organized Health Care Education/Training Program; ATTEND Family Medicine
PROC: 8E0ZXY6 Isolation (ICD-10-PCS; 2020-08-10)
PROC: 5A09457 Assistance with Respiratory Ventilation, 24-96 Consecutive Hours, Continuous Positive Airway Pressure (ICD-10-PCS; 2020-08-16)
PROC: 5A1955Z Respiratory Ventilation, Greater than 96 Consecutive Hours (ICD-10-PCS; 2020-08-17)
PROC: 0BH17EZ Insertion of Endotracheal Airway into Trachea, Via Natural or Artificial Opening (ICD-10-PCS; 2020-08-17)
PROC: 0W9B00Z Drainage of Left Pleural Cavity with Drainage Device, Open Approach (ICD-10-PCS; 2020-08-27)
PROC: 0W9900Z Drainage of Right Pleural Cavity with Drainage Device, Open Approach (ICD-10-PCS; 2020-08-27)
PROC: 0B110F4 Bypass Trachea to Cutaneous with Tracheostomy Device, Open Approach (ICD-10-PCS; principal; 2020-08-30)
PROC: 0DH63UZ Insertion of Feeding Device into Stomach, Percutaneous Approach (ICD-10-PCS; 2020-08-30)
DX: U07.1 COVID-19 (principal); J80 Acute respiratory distress syndrome; J15.9 Unspecified bacterial pneumonia; J12.82 Pneumonia due to coronavirus disease 2019; J93.9 Pneumothorax, unspecified; E46 Unspecified protein-calorie malnutrition; T79.7XXA Traumatic subcutaneous emphysema, initial encounter; N39.0 Urinary tract infection, site not specified; K31.0 Acute dilatation of stomach; Z66 Do not resuscitate; I10 Essential (primary) hypertension; E78.5 Hyperlipidemia, unspecified; E11.65 Type 2 diabetes mellitus with hyperglycemia; E87.70 Fluid overload, unspecified; E11.649 Type 2 diabetes mellitus with hypoglycemia without coma; D72.829 Elevated white blood cell count, unspecified; X58.XXXA Exposure to other specified factors, initial encounter; Z79.4 Long term (current) use of insulin; Z79.51 Long term (current) use of inhaled steroids; Z79.899 Other long term (current) drug therapy; Z79.82 Long term (current) use of aspirin; Z68.22 Body mass index [BMI] 22.0-22.9, adult; Z78.1 Physical restraint status
CPT/HCPCS: 36415; 36416; 36600; 71045; 71275; 80048; 80053; 80202; 82550; 82728; 82805; 83036; 83605; 83880; 84484; 85007; 85025; 85027; 85379; 85652; 86140; 86769; 87040; 87070; 87086; 87103; 87205; 87635; 93005; 93010; 94002; 94003; 94640; 94660; J1100; J1200; J1650; J1815; J1885; J1940; J2001; J2060; J2185; J2270; J2405; J2704; J2920; J2930; J3010; J3370; J3490; J7611; J7620; Q9967; U0003; U0005